=== PATIENT | female | born 1975 | race Caucasian/White ===

== ENCOUNTER 2025-09-07 15:04 | Observation (INO) | payer OTHER ==
--- NOTE | 2025-09-07 15:26 | ERPHSYRPT ---
- History of Present Illness Time Seen by Provider: 09/07/25 15:15 Source: patient Exam Limitations: no limitations Patient Subjective Stated Complaint: pt c/o of right medial thigh pain and thinks she has a blood clot Triage Nursing Assessment: Pt brought self to the ER, hypertensive, rates pain as 7/10, pulses normal, skin n/w/d, pain to the upper medial right thigh, hx of blood clots, has a filter in neck, denies chest pain, no difficulty breathing, doesn't appear to be in any distress Physician History: This is a morbidly obese 50-year-old white female patient who arrives via private vehicle and is a patient of Dr. Polk with the complaint of right upper medial thigh pain. The pain began 2 days ago. She is concerned about a recurrent DVT. Patient recently moved to this area from [place]. She was out of her Coumadin for approximately 1 month. Patient denies shortness of breath. Patient denies hemoptysis. Patient denies chest pain. Patient denies cough. Pain right lower extremity rated 7 out of 10. Occurred: days ago (2) Quality: aching Severity of Pain-Max: mild (To moderate) Severity of Pain-Current: mild (To moderate) Lower Extremities Pain: thigh: right (Medial aspect) Modifying Factors: Improves With: nothing Associated Symptoms: none Allergies/Adverse Reactions: Penicillins Allergy (Severe, Verified 09/07/25 15:19) Anaphylactic Reaction Sulfa (Sulfonamide Antibiotics) Allergy (Severe, Verified 09/07/25 15:19) Anaphylactic Reaction azithromycin Allergy (Verified 09/07/25 15:19) Hives cefaclor [From Ceclor] Allergy (Verified 09/07/25 15:19) Hives Home Medications: Duloxetine HCl 90 mg PO DAILY 09/07/25 [History] Esomeprazole Magnesium [Nexium] 40 mg PO DAILY 09/07/25 [History] Gabapentin [Neurontin ] 800 mg PO TID 09/07/25 [History] Oxycodone / APAP 10/325 mg [Oxycodone-Acetaminophen 10-325] 1 tab PO QID 09/07/25 [History] Oxyquinoline Sulfate [Hydroxyquinoline Sulfate] 1 gm MC DAILY 09/07/25 [History] Rosuvastatin Calcium 10 mg PO DAILY 09/07/25 [History] Trazodone HCl 150 mg PO HS 09/07/25 [History] Warfarin Sodium 5 mg [Coumadin] 7 mg PO DAILY 09/07/25 [History] Hx Influenza Vaccination/Date Given: Yes Hx Pneumococcal Vaccination/Date Given: Yes Travel Risk - International Travel Have you traveled outside of the country in past 3 weeks: No - Emerging Infectious Disease Are you exhibiting symptoms associated with any current EIDs: No - Review of Systems Constitutional: No Symptoms Eyes: No Symptoms Ears, Nose, & Throat: No Symptoms Respiratory: No Symptoms Cardiac: No Symptoms Abdominal/Gastrointestinal: No Symptoms Genitourinary Symptoms: No Symptoms Musculoskeletal: Other (Medial thigh pain on the right side) Skin: No Symptoms Neurological: No Symptoms Psychological: No Symptoms Endocrine: No Symptoms Hematologic/Lymphatic: No Symptoms Immunological/Allergic: No Symptoms All Other Systems: Reviewed and Negative - Past Medical History Pertinent Past Medical History: Yes Cardiac History: Deep Vein Thrombosis, High Cholesterol Musculoskeletal History: Arthritis, Fractures Psycho-Social History: Depression Other Medical History: back fractures and bulging discs - Past Surgical History Past Surgical History: Yes Musculoskeletal: Joint Replacement Female Surgical History: Hysterectomy, Section, Lumpectomy Other Surgical History: arina knee replacement, bones fused in left foot toes, arina releases in wrists, filter in neck for clots - Female History Hx Now: No (hysterectomy) - Social History Smoking Status: Current every day smoker Exposure to second hand smoke: Yes Drug Use: none - Social Determinants of Health Will the patient participate in the screening: Yes Do you worry about a steady place to live?: No Do you have any problems with any of the following?: No known problems In the past 12 months,have you had to go without utilities?: No Transportation Issues: No Has anyone in your support network made you feel unsafe?: No Have you or anyone in your house had to go w/o enough food: No - Nursing Vital Signs Nursing Vital Signs: Initial Vital Signs Temperature 97.4 F 09/07/25 15:08 Pulse Rate 64 09/07/25 15:08 Blood Pressure 144/81 09/07/25 15:08 O2 Sat by Pulse Oximetry 98 09/07/25 15:08 Pain Scale Pain Intensity 6 - Physical Exam General Appearance: no apparent distress, alert, anxiety, obese Eyes, Ears, Nose, Throat Exam: normal ENT inspection, moist mucous membranes Neck Exam: normal inspection, non-tender, supple, full range of motion Cardiovascular/Respiratory Exam: chest non-tender, normal breath sounds, regular rate/rhythm, heart sounds normal, no ecchymosis, no JVD, no M/R/G, no respiratory distress Gastrointestinal/Abdominal Exam: non-tender Back Exam: normal inspection, normal range of motion, vertebral tenderness, No CVA tenderness Hips Exam: bilateral: non-tender, normal inspection, normal range of motion, no evidence of injury Legs Exam: right leg: soft tissue tenderness (Medial aspect right thigh), left leg: non-tender, normal inspection, normal range of motion, bilateral leg: no evidence of injury Knees Exam: bilateral knee: non-tender, normal inspection, normal range of motion, no evidence of injury Ankle Exam: bilateral ankle: non-tender, normal inspection, normal range of motion, no evidence of injury Foot Exam: bilateral foot: non-tender, normal inspection, normal range of motion, no evidence of injury Neuro/Tendon Exam: normal sensation, normal motor functions, normal tendon functions, responds to pain, no evidence tendon injury Mental Status Exam: alert, oriented x 3, cooperative Skin Exam: normal color, warm, dry SpO2 Interpretation: normal SpO2: 98 O2 Delivery: Room Air - Course Nursing assessment & vital signs reviewed: Yes Ordered Tests: Active Orders 24 hr Category Date Time Status IV Insertion STAT Care 09/07/25 16:19 Active CHEST WITH CONTRAST [CT] Stat Exams 09/07/25 16:23 Taken VENOUS BILATERAL EXTREMITY [US] Stat Exams 09/07/25 15:26 Completed CBC W DIFF Stat Lab 09/07/25 15:50 Completed CMP Stat Lab 09/07/25 15:50 Completed PT INR [PROTIME WITH INR] Stat Lab 09/07/25 15:35 Completed Transfer Order Routine Transfer 09/07/25 Ordered Medication Summary Generic Name Dose Route Start Last Admin Trade Name Freq PRN Reason Stop Dose Admin Sodium Chloride 1,000 mls @ 100 mls/hr 09/07/25 16:30 09/07/25 16:33 Sodium Chloride 0.9% 1000 Ml IV 10/07/25 16:29 100 mls/hr .Q10H ANDERS Administration Discontinued Medications Generic Name Dose Route Start Last Admin Trade Name Freq PRN Reason Stop Dose Admin Enoxaparin Sodium 120 mg 09/07/25 16:13 09/07/25 16:21 Enoxaparin Sodium 120 Mg/0.8 Ml Syringe SQ 09/07/25 16:14 120 mg STAT STA Administration Enoxaparin Sodium Confirm 09/07/25 16:19 Enoxaparin Sodium 120 Mg/0.8 Ml Syringe Administered 09/07/25 16:20 Dose 120 mg SQ .STK-MED ONE Hydromorphone HCl 1 mg 09/07/25 16:19 09/07/25 16:34 Hydromorphone 1 Mg/1ml Inj IV 09/07/25 16:20 1 mg STAT ONE Administration Hydromorphone HCl Confirm 09/07/25 16:31 Hydromorphone 1 Mg/1ml Inj Administered 09/07/25 16:32 Dose 1 mg .ROUTE .STK-MED ONE Hydromorphone HCl 1 mg 09/07/25 18:49 Hydromorphone 1 Mg/1ml Inj IV 09/07/25 18:50 STAT ONE Ondansetron HCl 4 mg 09/07/25 16:19 09/07/25 16:34 Ondansetron Hcl 4 Mg/2 Ml Vial IV 09/07/25 16:20 4 mg STAT ONE Administration Ondansetron HCl Confirm 09/07/25 16:31 Ondansetron Hcl 4 Mg/2 Ml Vial Administered 09/07/25 16:32 Dose 4 mg .ROUTE .STK-MED ONE Lab/Rad Data: Laboratory Result Diagrams 09/07/25 15:50 09/07/25 15:50 Laboratory Results 09/07/25 09/07/25 09/07/25 Range/Units 15:50 15:50 15:35 WBC 9.3 (3.98-10.04) x10^3/uL RBC 4.22 (3.93-5.22) x10^6/uL Hgb 13.9 (11.2-15.7) g/dL Hct 43.3 (34.1-44.9) % MCV 102.6 H (79.4-94.8) fL MCH 32.9 H (25.6-32.2) pg MCHC 32.1 L (32.2-35.5) g/dL RDW 13.8 (11.7-14.4) % Plt Count 233 (182-369) x10^3/uL MPV 10.7 (9.4-12.3) fL Gran % 63.7 (34.0-71.1) % Immature Gran % (Auto) 0.3 (0.001-0.429) % Nucleat RBC Rel Count 0.0 (0.00-0.2) % Eos # (Auto) 0.24 (0.04-0.36) x10^3/uL Immature Gran # (Auto) 0.03 (0.001-0.031) x10^3u/L Absolute Lymphs (auto) 2.33 (1.18-3.74) x10^3/uL Absolute Monos (auto) 0.69 (0.24-0.86) x10^3/uL Absolute Nucleated RBC 0.00 (0.00-0.012) x10^3u/L Lymphocytes % 25.1 (19.3-51.7) % Monocytes % 7.4 (4.7-12.5) % Eosinophils % 2.6 (0.7-5.8) % Basophils % 0.9 (0.1-1.2) % Absolute Granulocytes 5.93 (1.56-6.13) x10^3/uL Basophils # 0.08 (0.01-0.08) x10^3/uL PT 11.4 (9.4-12.5) SECONDS INR 1.02 (0.8-3.0) Sodium 142 (135-145) mmol/L Potassium 3.6 (3.5-5.1) mmol/L Chloride 111 H (98-107) mmol/L Carbon Dioxide 22 (22-30) mmol/L Anion Gap 12.6 (5-15) MEQ/L BUN 11 (7-17) mg/dL Creatinine 0.97 (0.52-1.04) mg/dL Estimated GFR 70.8 ML/MIN Glucose 94 (74-106) mg/dL Calcium 9.0 (8.4-10.2) mg/dL Total Bilirubin 0.20 (0.2-1.3) mg/dL AST 17 (14-36) U/L ALT 11 (0-35) U/L Alkaline Phosphatase 65 (38-126) U/L Serum Total Protein 7.6 (6.3-8.2) g/dL Albumin 4.1 (3.5-5.0) g/dL - Progress Progress: improved, pain not gone completely, re-examined Progress Note: 09/07/25 16:25 My medical decision making and the assignment of high complexity of this patient's medical issue today is based on review of the patient's past medical history, reviewed patient's medication list, reviewed patient drug allergy list, history present illness and physical findings on examination. The workup in this patient initially called for PT/INR and bilateral lower extremity venous Doppler. However, additional workup is being performed based on positive, bilateral lower extremity nonocclusive DVTs. Differential diagnosis includes but is not limited to bilateral musculoskeletal or lower extremity pain, bilateral DVTs, pulmonary embolus, subtherapeutic PT/INR Initial, preliminary report provided to me by the cnc set up operator/technologist is bilateral lower extremity nonoccluding DVTs. I spoke with Dr. Bolton, the telehospitalist regarding placing this patient in observation. Together, we have decided that we were going to place an intravenous line, provide the patient with subcutaneous Lovenox, order CBC, CMP, provide the patient with low rate intravenous fluid in order a CT scan of the chest with contrast to evaluate for pulmonary embolus. I will call him back with the report of the CT scan of the chest with contrast. I anticipate this patient will be placed in observation. 09/07/25 18:46 I called the telehospitalist and updated him on the laboratory results and the results of the CT scan of the chest with contrast. This study was interpreted by the radiologist and the impression states no obvious pulmonary embolus. We will place this patient on MedSurg telemetry. We will provide the patient with Lovenox 120 mg subcutaneously every 12 hours Counseled pt/family regarding: lab results, diagnosis, rad results Medical Desision Making - Diagnostic Testing Diagnostic test were ordered, analyzed, and reviewed by me: Yes Radiological Interpretation: Reviewed by me, Teleradiologist Report - Risk of complications The pt has a high risk of morbidity or mortality based on: Decision regarding hospitilization or escalation of hosp level of care - Departure Departure Disposition: Observation Clinical Impression: DVT of lower extremity, bilateral, Subtherapeutic anticoagulation Condition: Stable Critical Care Time: Yes Critical Care Time(excluding separately billable procedures): Critical 30-74 mins (45) Referrals: DUNIA POLK [Primary Care Provider, [facility]] - Follow up/PCP as directed
[2025-09-07 15:55] LABS: INR 1.02 (0.8-3.0); PROTIME 11.4 SECONDS (9.4-12.5)
[2025-09-07] MEDS ORDERED: ENOXAPARIN SODIUM SQ ONE (16:19)
[2025-09-07] MEDS: ENOXAPARIN SODIUM SQ STA (16:21)
--- NOTE | 2025-09-07 16:27 | XRAY ---
Indication: Bilateral leg pain and swelling. Two-dimensional sonogram and color Doppler imaging major venous vessels left and right leg performed. Comparison: None Right leg demonstrates nonoccluding thrombi in common femoral , deep femoral, and femoral veins. Left leg also demonstrates nonoccluding thrombi in deep femoral vein. No other thrombus in remaining deep venous vessels left and right leg including greater saphenous vein. Patent veins demonstrate normal compressibility and normal venous waveforms. Impression: Nonoccluding DVTs left and right leg as detailed above.
[2025-09-07 16:30] LABS: BASOPHIL % 0.9 % (0.1-1.2); Basophil (Absolute #) 0.08 x10^3/uL (0.01-0.08); Eosinophil (Absolute #) 0.24 x10^3/uL (0.04-0.36); Hematocrit 43.3 % (34.1-44.9); Hemoglobin 13.9 g/dL (11.2-15.7); IMMATURE GRAN # 0.03 x10^3u/L (0.001-0.031); IMMATURE GRAN % 0.3 % (0.001-0.429); Lymphocyte (Absolute #) 2.33 x10^3/uL (1.18-3.74); Mean Corpuscular Hemoglobin 32.9 pg (25.6-32.2); Mean Corpuscular Hgb Concent. 32.1 g/dL (32.2-35.5); Monocyte (Absolute #) 0.69 x10^3/uL (0.24-0.86); NUCLEATED RBC # 0.00 x10^3u/L (0.00-0.012); NUCLEATED RBC % 0.0 % (0.00-0.2); Platelet Count 233 x10^3/uL (182-369); Red Blood Count 4.22 x10^6/uL (3.93-5.22); White Blood Count 9.3 x10^3/uL (3.98-10.04)
[2025-09-07] MEDS ORDERED: Zofran 4 MG/2 ML VIAL ONE (16:31)
[2025-09-07] MEDS ORDERED: Hydromorphone 1 mg/ml Injection ONE ×2 (16:31→18:54)
[2025-09-07] MEDS: Hydromorphone 1 mg/ml Injection IV ONE ×2 (16:34→18:55)
[2025-09-07] MEDS: Zofran 4 MG/2 ML VIAL IV ONE (16:34)
[2025-09-07 16:36] LABS: Calcium 9.0 mg/dL (8.4-10.2); Carbon Dioxide 22.0 mmol/L (22-30); Creatinine 1 0.97 mg/dL (0.52-1.04); EST GLOMERULAR FILTRATION RATE 70.8 ML/MIN; Glucose 94.0 mg/dL (74-106); Potassium 3.6 mmol/L (3.5-5.1); SGOT/AST 17.0 U/L (14-36); SGPT/ALT 11.0 U/L (0-35); Total Protein 7.6 g/dL (6.3-8.2)
[2025-09-07] MEDS ORDERED: Zofran 4 MG/2 ML VIAL IV PRN ×2 (19:08→19:46)
[2025-09-07] MEDS ORDERED: Hydromorphone 1 mg/ml Injection IV PRN (19:48)
--- NOTE | 2025-09-07 19:55 | PCM.HP ---
History of Present Illness - Chief Complaint Chief Complaint: Bilateral lower extremity DVT Date: 09/07/25 History of Present Illness: is a 50 year old female with a history of hypercoagulable state with positive anticardiolipin antibody and history of multiple DVT/PE (s/p IVC filter placement in 2002; has been on coumadin custodial and has had failure of therapy with breakthrough clots on Xarelto and Eliquis in the past) who presented to the ED with right upper medial thigh pain and worsening leg edema which began 2 days ago. The patient recently moved to this area from [place] and had difficulty establishing care locally, so there was an interruption in her coumadin therapy for a little over 3 weeks. She has subsequently established care with Dr. Rubalcava and resumed her Coumadin yesterday. She denied shortness of breath, hemoptysis, chest pain, and cough. Pain right lower extremity was rated 7 out of 10 in terms of intensity; she received Dilaudid in the ED. Workup demonstrated bilateral nonocclusive DVT but no PE. The patient received Lovenox in the ED. - Review of Systems Constitutional: No Symptoms Eyes: No Symptoms Ears, Nose, & Throat: No Symptoms Respiratory: No Symptoms Cardiac: Edema, No Chest Pain, No Palpitations, No Syncope, No Orthopnea, No PND Abdominal/Gastrointestinal: No Symptoms Genitourinary Symptoms: No Symptoms Musculoskeletal: Other (leg pain reported), No Arthralgias, No Back Pain, No Neck Pain, No Deformity, No Fall, No Injury, No Joint Redness, No Joint Pain, No Joint Swelling, No Myalgias Skin: No Symptoms Neurological: No Symptoms Psychological: No Symptoms Endocrine: No Symptoms Hematologic/Lymphatic: No Symptoms Immunological/Allergic: No Symptoms All Other Systems: Reviewed and Negative Medications & Allergies Home Medications: Home Medication List Duloxetine HCl 90 mg PO DAILY 09/07/25 [History Confirmed 09/07/25] Esomeprazole Magnesium [Nexium] 40 mg PO DAILY 09/07/25 [History Confirmed 09/07/25] Gabapentin [Neurontin ] 800 mg PO TID 09/07/25 [History Confirmed 09/07/25] Oxycodone / APAP 10/325 mg [Oxycodone-Acetaminophen 10-325] 1 tab PO QID 09/07/25 [History Confirmed 09/07/25] Oxyquinoline Sulfate [Hydroxyquinoline Sulfate] 1 gm MC DAILY 09/07/25 [History Confirmed 09/07/25] Rosuvastatin Calcium 10 mg PO DAILY 09/07/25 [History Confirmed 09/07/25] Trazodone HCl 150 mg PO HS 09/07/25 [History Confirmed 09/07/25] Warfarin Sodium 5 mg [Coumadin] 7 mg PO DAILY 09/07/25 [History Confirmed 09/07/25] Allergies/Adverse Reactions: Allergies Allergy/AdvReac Type Severity Reaction Status Date / Time Penicillins Allergy Severe Anaphylactic Verified 09/07/25 15:19 Reaction Sulfa (Sulfonamide Allergy Severe Anaphylactic Verified 09/07/25 15:19 Antibiotics) Reaction azithromycin Allergy Hives Verified 09/07/25 15:19 cefaclor [From Ceclor] Allergy Hives Verified 09/07/25 15:19 - Past Medical History Past Medical History: Yes Neurological History: Migraines ENT History: No Pertinent History Cardiac History: Deep Vein Thrombosis, High Cholesterol Respiratory History: COPD, Pulmonary Embolism Endocrine Medical History: No Pertinent History Musculoskelatal History: Arthritis, Degenerative Disk Disease, Fractures, Rheumatoid Arthritis GI Medical History: No Pertinent History History: No Pertinent History Pyscho-Social History: Depression Reproductive Disorders: No Pertinent History Comment: 4 back fractures and bulging discs - Female History Are you now?: No (hysterectomy) - Past Surgical History Past Surgical History: Yes Neuro Surgical History: No Pertinent History Cardiac History: No Pertinent History Respiratory Surgery: No Pertinent History GI Surgical History: No Pertinent History Genitourinary Surgical Hx: No Pertinent History Musculskeletal Surgical Hx: Joint Replacement Female Surgical History: Hysterectomy, Section, Lumpectomy Other Surgical History: arina knee replacement, bones fused in left foot toes, arina releases in wrists, filter in neck for clots Significant Family History: other (mother and 3 siblings had blood clots) - Social History Smoking Status: Current every day smoker Exposure to second hand smoke: Yes Alcohol: Rarely Drug Use: none - Social Determinants of Health Will the patient participate in the screening: Yes Do you worry about a steady place to live?: No Do you have any problems with any of the following?: No known problems In the past 12 months,have you had to go without utilities?: No Have you or anyone in your house had to go without enough: No Transportation Issues: No Has anyone in your support network made you feel unsafe?: No - Physical Exam Vital Signs: Vital Signs - 24 hr Temp Pulse BP BP Pulse Ox 09/07/25 18:53 98 09/07/25 18:31 128/64 94 L 09/07/25 18:00 161/95 95 09/07/25 17:31 140/74 09/07/25 17:15 129/70 97 09/07/25 16:30 153/108 98 09/07/25 16:00 135/89 95 09/07/25 15:31 125/75 95 09/07/25 15:16 144/81 95 09/07/25 15:08 97.4 F 64 144/81 98 General Appearance: no apparent distress, alert Neurologic Exam: alert, oriented x 3, cooperative, cigarette and filter chief inspector II-XII nml as tested, normal mood/affect, nml cerebellar function Eye Exam: PERRL/EOMI, eyes nml inspection, No scleral icterus, No pale conjunctivae, No photophobia Ears, Nose, Throat Exam: normal ENT inspection Neck Exam: normal inspection, non-tender, supple, full range of motion, No meningismus Respiratory Exam: normal breath sounds, lungs clear, airway intact, No chest tenderness, No respiratory distress, No accessory muscle use, No prolonged expirations, No crackles/rales, No rhonchi, No wheezing, No stridor, No pleural rub Cardiovascular Exam: regular rate/rhythm, normal heart sounds, normal peripheral pulses, edema, No murmur, No friction rub, No gallop Gastrointestinal/Abdomen Exam: soft, normal bowel sounds, No tenderness, No distention, No guarding Back Exam: normal range of motion Extremity Exam: normal inspection, normal range of motion, pedal edema, swelling Skin Exam: normal color, No dry, No rash, No petechiae, No jaundice, No abrasion, No cyanosis Results - Labs Lab/Micro Results: Lab Results-Last 24 Hours 09/07/25 09/07/25 09/07/25 Range/Units 15:35 15:50 15:50 WBC 9.3 (3.98-10.04) x10^3/uL RBC 4.22 (3.93-5.22) x10^6/uL Hgb 13.9 (11.2-15.7) g/dL Hct 43.3 (34.1-44.9) % MCV 102.6 H (79.4-94.8) fL MCH 32.9 H (25.6-32.2) pg MCHC 32.1 L (32.2-35.5) g/dL RDW 13.8 (11.7-14.4) % Plt Count 233 (182-369) x10^3/uL MPV 10.7 (9.4-12.3) fL Gran % 63.7 (34.0-71.1) % Immature Gran % (Auto) 0.3 (0.001-0.429) % Nucleat RBC Rel Count 0.0 (0.00-0.2) % Eos # (Auto) 0.24 (0.04-0.36) x10^3/uL Immature Gran # (Auto) 0.03 (0.001-0.031) x10^3u/L Absolute Lymphs (auto) 2.33 (1.18-3.74) x10^3/uL Absolute Monos (auto) 0.69 (0.24-0.86) x10^3/uL Absolute Nucleated RBC 0.00 (0.00-0.012) x10^3u/L Lymphocytes % 25.1 (19.3-51.7) % Monocytes % 7.4 (4.7-12.5) % Eosinophils % 2.6 (0.7-5.8) % Basophils % 0.9 (0.1-1.2) % Absolute Granulocytes 5.93 (1.56-6.13) x10^3/uL Basophils # 0.08 (0.01-0.08) x10^3/uL PT 11.4 (9.4-12.5) SECONDS INR 1.02 (0.8-3.0) Sodium 142 (135-145) mmol/L Potassium 3.6 (3.5-5.1) mmol/L Chloride 111 H (98-107) mmol/L Carbon Dioxide 22 (22-30) mmol/L Anion Gap 12.6 (5-15) MEQ/L BUN 11 (7-17) mg/dL Creatinine 0.97 (0.52-1.04) mg/dL Estimated GFR 70.8 ML/MIN Glucose 94 (74-106) mg/dL Calcium 9.0 (8.4-10.2) mg/dL Total Bilirubin 0.20 (0.2-1.3) mg/dL AST 17 (14-36) U/L ALT 11 (0-35) U/L Alkaline Phosphatase 65 (38-126) U/L Serum Total Protein 7.6 (6.3-8.2) g/dL Albumin 4.1 (3.5-5.0) g/dL - Radiology Impressions Radiology Exams & Impressions: Radiology Procedures Category Date Time Status CHEST WITH CONTRAST [CT] Stat Exams 09/07/25 16:23 Taken VENOUS BILATERAL EXTREMITY [US] Stat Exams 09/07/25 15:26 Completed Assessment/Plan (1) DVT of lower extremity, bilateral Current Visit: Yes Status: Acute Assessment & Plan: Lovenox, resume coumadin, check INR daily. Patient familiar with coumadin dietary restrictions. Will need close follow up with PCP for Lovenox bridging coordination when discharged. Code(s): I82.403 - ACUTE EMBOLISM AND THOMBOS UNSP DEEP VEINS OF LOW EXTRM, BI (2) Anticardiolipin antibody syndrome Current Visit: Yes Status: Acute Assessment & Plan: Lifelong anticoagulation with coumadin. Has IVC filter in place. Code(s): D68.61 - ANTIPHOSPHOLIPID SYNDROME (3) Leg pain Current Visit: Yes Status: Acute Assessment & Plan: analgesia prn. (4) Subtherapeutic anticoagulation Current Visit: Yes Status: Acute Assessment & Plan: Monitor INR daily Code(s): Z51.81 - ENCOUNTER FOR THERAPEUTIC DRUG LEVEL MONITORING; Z79.01 - ANIMAL RIDES MANAGER (CURRENT) USE OF ANTICOAGULANTS Telemedicine Encounter - Telemedicine Encounter Telemedicine Encounter: "The entirety of this encounter was performed via Telemedicine" This visit was performed using real-time audio and video connection between my location and thepatients locationwith the assistance of a surrogateat the patients location. Written or verbal consent was obtained from the patient/guardian to perform this visit [email or web address]. Any patient questions regarding the telemedicine interaction were answered. Please note that this admission required 48 minutes to complete.
[2025-09-07 20:57] LABS: INR 1.01 (0.8-3.0); PROTIME 11.3 SECONDS (9.4-12.5); PTT 30.9 SECONDS (25.1-36.5)
[2025-09-07] MEDS ORDERED: DESYREL 50 MG ONE (21:21)
[2025-09-07] MEDS: ENOXAPARIN SODIUM SQ SCH (21:24)
[2025-09-07] MEDS: TRAZODONE HCL 150 MG PO SCH (21:27)
[2025-09-07] MEDS: OXYCODONE-ACETAMINOPHEN 10-325 PO SCH (21:28)
--- NOTE | 2025-09-07 21:31 | XRAY ---
Indication: History DVT and pulmonary embolus. Multiple contiguous axial images obtained through the chest using 100 cc Isovue 370 contrast and PE protocol. Comparison: None Good opacification pulmonary arteries. Mild diffuse respiration artifact limits evaluation of the more distal lobar and segmental branches. No obvious pulmonary embolus. Heart not enlarged. Aorta is minimally arteriosclerotic without aneurysm/dissection. No pathologic mediastinal/hilar lymphadenopathy. Small hiatal hernia. Lungs hyperinflated with mild bilateral dependent atelectasis. No suspicious pulmonary mass/nodule, infiltrate, or effusion. Bony thorax intact with minimal/mild degenerative changes throughout the spine. Limited upper abdomen demonstrates fatty liver. Impression: 1. Pulmonary embolus evaluation limited by respiration artifact. No obvious pulmonary embolus. 2. Chronic findings including hiatal hernia, multilevel degenerative spondylosis, and fatty liver. 3. Remaining CT chest with contrast is negative.
[2025-09-08] MEDS: NORCO 5/325 MG PO PRN (04:20)
[2025-09-08 05:19] LABS: Hematocrit 39.5 % (34.1-44.9); Hemoglobin 12.6 g/dL (11.2-15.7); Mean Corpuscular Hemoglobin 33.1 pg (25.6-32.2); Mean Corpuscular Hgb Concent. 31.9 g/dL (32.2-35.5); Platelet Count 211 x10^3/uL (182-369); Red Blood Count 3.81 x10^6/uL (3.93-5.22); White Blood Count 8.4 x10^3/uL (3.98-10.04)
[2025-09-08 05:27] LABS: Calcium 8.9 mg/dL (8.4-10.2); Carbon Dioxide 21 mmol/L (22-30); Creatinine 1 0.92 mg/dL (0.52-1.04); EST GLOMERULAR FILTRATION RATE 75.4 ML/MIN; Glucose 93 mg/dL (74-106); Potassium 3.8 mmol/L (3.5-5.1); SGOT/AST 16 U/L (14-36); SGPT/ALT 10 U/L (0-35); Total Protein 6.7 g/dL (6.3-8.2)
[2025-09-08] MEDS ORDERED: Narcan 0.4 MG/ML IV PRN (07:28)
[2025-09-08] MEDS ORDERED: MEDICATION INTERVENTION MC SCH (07:30)
[2025-09-08 07:37] LABS: Total Cells Counted 100
[2025-09-08 07:49] LABS: INR 1.05 (0.8-3.0); PROTIME 11.7 SECONDS (9.4-12.5)
[2025-09-08] MEDS: TYLENOL 325 MG PO PRN (08:39)
[2025-09-08] MEDS: PHARMACY DOSING REQUEST MC ONE (08:43)
--- NOTE | 2025-09-08 08:55 | PCM.NOTE ---
Date and Time: 09/08/25 0846 Subjective Assessment: is a 50-year-old female with a significant past medical history that includes morbid obesity, chronic obstructive pulmonary disease, degenerative joint disease, rheumatoid arthritis, systemic lupus erythematosus, depression, hyperlipidemia, and a hypercoagulable state associated with positive an ticardiolipin antibodies. She has a history of multiple episodes of deep vein thrombosis (DVT) and pulmonary embolism (PE) and underwent placement of an inferior vena cava (IVC) filter in 2002. She has been on long-term warfarin therapy but has previously failed therapy with both Xarelto and Eliquis, experiencing breakthrough clots on each. The patient recently relocated from [place] and had difficulty establishing care locally, resulting in an interruption in her Coumadin therapy for a little over three weeks. She has since established care with Dr. Rubalcava and resumed Coumadin on September 07, 2025. She presented to the emergency department on September 07, 2025, with right upper medial thigh pain and worsening leg edema that began two days prior. She described the pain as 7 out of 10 in intensity. She denied shortness of breath, chest pain, cough, or hemoptysis. In the emergency department, she received Dilaudid for pain control. Diagnostic evaluation revealed bilateral nonocclusive DVTs but no evidence of pulmonary embolism. She was given a dose of Lovenox in the ED. On September 08, 2025, the patient reports continued pain in her right upper leg. She takes chronic Percocet 10 mg four times daily for pain related to degenerative joint disease and rheumatoid arthritis. Although warfarin and Lovenox were ordered yesterday, Coumadin therapy did not begin until today. She denies any new or worsening symptoms, including chest pain or shortness of breath. The current plan is to continue both Lovenox and warfarin until her INR is therapeutic, given her history of hypercoagulability and recurrent thrombosis. Case management will evaluate on Wednesday whether her insurance will cover outpatient Lovenox injections, as this will determine whether she can be discharged with both medications. Her INR will be monitored daily while inpatient. Pain will be managed with her chronic Percocet regimen, and Tylenol will be used as needed for breakthrough pain. She will be monitored for any signs or symptoms of pulmonary embolism and encouraged to elevate her legs and ambulate as tolerated. If insurance coverage for Lovenox is confirmed and she is clinically stable, the patient may be discharged home on warfarin with Lovenox bridging until her INR is therapeutic, with follow-up arranged through the outpatient anticoagulation clinic at [facility]. - Review of Systems Constitutional: No Fever, No Chills Eyes: No Symptoms Ears, Nose, & Throat: No Symptoms Respiratory: No Cough, No Short Of Breath Cardiac: No Chest Pain, No Edema, No Syncope Abdominal/Gastrointestinal: No Abdominal Pain, No Nausea, No Vomiting, No Diarrhea Genitourinary Symptoms: No Dysuria Musculoskeletal: Myalgias (right upper leg pain, edema), No Back Pain, No Neck Pain Skin: No Rash Neurological: No Dizziness, No Focal Weakness, No Sensory Changes Psychological: No Symptoms Endocrine: No Symptoms Hematologic/Lymphatic: No Symptoms Immunological/Allergic: No Symptoms Objective Exam General Appearance: no apparent distress, alert, obese Neurologic Exam: alert, oriented x 3, cooperative, normal mood/affect, nml cerebellar function, sensation nml, No motor deficits Skin Exam: normal color, warm, dry Eye Exam: PERRL, EOMI, eyes nml inspection Ears, Nose, Throat Exam: normal ENT inspection, pharynx normal, moist mucous membranes Neck Exam: normal inspection, non-tender, supple, full range of motion Respiratory Exam: normal breath sounds, lungs clear, No respiratory distress Cardiovascular Exam: regular rate/rhythm, normal heart sounds Gastrointestinal/Abdomen Exam: soft, No tenderness, No mass Extremity Exam: normal inspection, normal range of motion, tenderness (right thigh) Back Exam: normal inspection, normal range of motion, No CVA tenderness, No vertebral tenderness Pelvic Exam: deferred Rectal Exam: deferred Objective Data Vital Signs: Vital Signs - 24 hr Temp Pulse Resp BP BP Pulse Ox 09/08/25 08:00 97.8 F 62 16 92/50 95 09/08/25 04:00 97.5 F 71 17 94/52 95 09/08/25 00:00 17 09/07/25 23:54 97.3 F 60 17 97/54 95 09/07/25 19:24 97.1 F 68 132/64 96 09/07/25 18:53 98 09/07/25 18:31 128/64 94 L 09/07/25 18:00 161/95 95 09/07/25 17:31 140/74 09/07/25 17:15 129/70 97 09/07/25 16:30 153/108 98 09/07/25 16:00 135/89 95 09/07/25 15:31 125/75 95 09/07/25 15:16 144/81 95 09/07/25 15:08 97.4 F 64 144/81 98 Pain Assessment - Last Documented Pain Intensity 7 Pain Scale Used FLACC Intake and Output: Intake & Output 09/05/25 09/06/25 09/07/25 09/08/25 11:59 11:59 11:59 11:59 Weight 115.5 kg Lab Results: Lab Results-Last 24 Hours 09/07/25 09/07/25 09/07/25 Range/Units 15:35 15:50 15:50 WBC 9.3 (3.98-10.04) x10^3/uL RBC 4.22 (3.93-5.22) x10^6/uL Hgb 13.9 (11.2-15.7) g/dL Hct 43.3 (34.1-44.9) % MCV 102.6 H (79.4-94.8) fL MCH 32.9 H (25.6-32.2) pg MCHC 32.1 L (32.2-35.5) g/dL RDW 13.8 (11.7-14.4) % Plt Count 233 (182-369) x10^3/uL MPV 10.7 (9.4-12.3) fL Gran % 63.7 (34.0-71.1) % Immature Gran % (Auto) 0.3 (0.001-0.429) % Nucleat RBC Rel Count 0.0 (0.00-0.2) % Eos # (Auto) 0.24 (0.04-0.36) x10^3/uL Immature Gran # (Auto) 0.03 (0.001-0.031) x10^3u/L Absolute Lymphs (auto) 2.33 (1.18-3.74) x10^3/uL Absolute Monos (auto) 0.69 (0.24-0.86) x10^3/uL Absolute Nucleated RBC 0.00 (0.00-0.012) x10^3u/L Lymphocytes % 25.1 (19.3-51.7) % Monocytes % 7.4 (4.7-12.5) % Eosinophils % 2.6 (0.7-5.8) % Basophils % 0.9 (0.1-1.2) % Absolute Granulocytes 5.93 (1.56-6.13) x10^3/uL Segmented Neutrophils (34.0-71.1) % Lymphocytes (Manual) (19.3-51.7) % Monocytes (Manual) (4.7-12.5) % Eosinophils (Manual) (0.7-5.8) % Basophils (Manual) (0.1-1.2) % Basophils # 0.08 (0.01-0.08) x10^3/uL Atypical Lymphocytes % Platelet Estimate (NORMAL) RBC Morphology PT 11.4 (9.4-12.5) SECONDS INR 1.02 (0.8-3.0) APTT (25.1-36.5) SECONDS Sodium 142 (135-145) mmol/L Potassium 3.6 (3.5-5.1) mmol/L Chloride 111 H (98-107) mmol/L Carbon Dioxide 22 (22-30) mmol/L Anion Gap 12.6 (5-15) MEQ/L BUN 11 (7-17) mg/dL Creatinine 0.97 (0.52-1.04) mg/dL Estimated GFR 70.8 ML/MIN Glucose 94 (74-106) mg/dL Calcium 9.0 (8.4-10.2) mg/dL Total Bilirubin 0.20 (0.2-1.3) mg/dL AST 17 (14-36) U/L ALT 11 (0-35) U/L Alkaline Phosphatase 65 (38-126) U/L Serum Total Protein 7.6 (6.3-8.2) g/dL Albumin 4.1 (3.5-5.0) g/dL 09/07/25 09/08/25 09/08/25 Range/Units 20:30 05:06 05:06 WBC 8.4 (3.98-10.04) x10^3/uL RBC 3.81 L (3.93-5.22) x10^6/uL Hgb 12.6 (11.2-15.7) g/dL Hct 39.5 (34.1-44.9) % MCV 103.7 H (79.4-94.8) fL MCH 33.1 H (25.6-32.2) pg MCHC 31.9 L (32.2-35.5) g/dL RDW 14.0 (11.7-14.4) % Plt Count 211 (182-369) x10^3/uL MPV 10.2 (9.4-12.3) fL Gran % (34.0-71.1) % Immature Gran % (Auto) (0.001-0.429) % Nucleat RBC Rel Count (0.00-0.2) % Eos # (Auto) (0.04-0.36) x10^3/uL Immature Gran # (Auto) (0.001-0.031) x10^3u/L Absolute Lymphs (auto) (1.18-3.74) x10^3/uL Absolute Monos (auto) (0.24-0.86) x10^3/uL Absolute Nucleated RBC (0.00-0.012) x10^3u/L Lymphocytes % (19.3-51.7) % Monocytes % (4.7-12.5) % Eosinophils % (0.7-5.8) % Basophils % (0.1-1.2) % Absolute Granulocytes (1.56-6.13) x10^3/uL Segmented Neutrophils 42 (34.0-71.1) % Lymphocytes (Manual) 43 (19.3-51.7) % Monocytes (Manual) 6 (4.7-12.5) % Eosinophils (Manual) 4 (0.7-5.8) % Basophils (Manual) 2 H (0.1-1.2) % Basophils # (0.01-0.08) x10^3/uL Atypical Lymphocytes 3 % Platelet Estimate NORMAL (NORMAL) RBC Morphology NORMAL PT 11.3 (9.4-12.5) SECONDS INR 1.01 (0.8-3.0) APTT 30.9 (25.1-36.5) SECONDS Sodium 140 (135-145) mmol/L Potassium 3.8 (3.5-5.1) mmol/L Chloride 113 H (98-107) mmol/L Carbon Dioxide 21 L (22-30) mmol/L Anion Gap 10.2 (5-15) MEQ/L BUN 14 (7-17) mg/dL Creatinine 0.92 (0.52-1.04) mg/dL Estimated GFR 75.4 ML/MIN Glucose 93 (74-106) mg/dL Calcium 8.9 (8.4-10.2) mg/dL Total Bilirubin < 0.10 L (0.2-1.3) mg/dL AST 16 (14-36) U/L ALT 10 (0-35) U/L Alkaline Phosphatase 59 (38-126) U/L Serum Total Protein 6.7 (6.3-8.2) g/dL Albumin 3.5 (3.5-5.0) g/dL 09/08/25 Range/Units 05:06 WBC (3.98-10.04) x10^3/uL RBC (3.93-5.22) x10^6/uL Hgb (11.2-15.7) g/dL Hct (34.1-44.9) % MCV (79.4-94.8) fL MCH (25.6-32.2) pg MCHC (32.2-35.5) g/dL RDW (11.7-14.4) % Plt Count (182-369) x10^3/uL MPV (9.4-12.3) fL Gran % (34.0-71.1) % Immature Gran % (Auto) (0.001-0.429) % Nucleat RBC Rel Count (0.00-0.2) % Eos # (Auto) (0.04-0.36) x10^3/uL Immature Gran # (Auto) (0.001-0.031) x10^3u/L Absolute Lymphs (auto) (1.18-3.74) x10^3/uL Absolute Monos (auto) (0.24-0.86) x10^3/uL Absolute Nucleated RBC (0.00-0.012) x10^3u/L Lymphocytes % (19.3-51.7) % Monocytes % (4.7-12.5) % Eosinophils % (0.7-5.8) % Basophils % (0.1-1.2) % Absolute Granulocytes (1.56-6.13) x10^3/uL Segmented Neutrophils (34.0-71.1) % Lymphocytes (Manual) (19.3-51.7) % Monocytes (Manual) (4.7-12.5) % Eosinophils (Manual) (0.7-5.8) % Basophils (Manual) (0.1-1.2) % Basophils # (0.01-0.08) x10^3/uL Atypical Lymphocytes % Platelet Estimate (NORMAL) RBC Morphology PT 11.7 (9.4-12.5) SECONDS INR 1.05 (0.8-3.0) APTT (25.1-36.5) SECONDS Sodium (135-145) mmol/L Potassium (3.5-5.1) mmol/L Chloride (98-107) mmol/L Carbon Dioxide (22-30) mmol/L Anion Gap (5-15) MEQ/L BUN (7-17) mg/dL Creatinine (0.52-1.04) mg/dL Estimated GFR ML/MIN Glucose (74-106) mg/dL Calcium (8.4-10.2) mg/dL Total Bilirubin (0.2-1.3) mg/dL AST (14-36) U/L ALT (0-35) U/L Alkaline Phosphatase (38-126) U/L Serum Total Protein (6.3-8.2) g/dL Albumin (3.5-5.0) g/dL Radiology Exams: Radiology Procedures Category Date Time Status CHEST WITH CONTRAST [CT] Stat Exams 09/07/25 16:23 Completed VENOUS BILATERAL EXTREMITY [US] Stat Exams 09/07/25 15:26 Completed Medications: Medications Generic Name Dose Route Start Last Admin Trade Name Freq PRN Reason Stop Dose Admin Acetaminophen 650 mg 09/07/25 19:08 09/08/25 08:39 Acetaminophen 325 Mg Tablet PO 10/07/25 19:07 650 mg Q4H PRN PRN Administration PAIN, FEVER, HEADACHE Duloxetine HCl 90 mg 09/08/25 10:00 Duloxetine Hcl 30 Mg Cap PO 10/08/25 09:59 DAILY ANDERS Enoxaparin Sodium 120 mg 09/07/25 22:00 09/07/25 21:24 Enoxaparin Sodium 120 Mg/0.8 Ml Syringe SQ 10/07/25 21:59 120 mg Q12HT ANDERS Administration Gabapentin 800 mg 09/07/25 22:00 09/07/25 21:29 Gabapentin 400 Mg Capsule PO 10/07/25 21:59 800 mg TID ANDERS Administration Miscellaneous Information 1 each 09/08/25 07:30 Medication Intervention 1 Each Each 10/08/25 07:29 .RN TO CHECK ANDERS Naloxone HCl 0.4 mg 09/08/25 07:28 Naloxone Hcl 0.4 Mg/Ml Ml IV 10/08/25 07:27 PRN PRN RESPIRATORY DEPRESSION Ondansetron HCl 4 mg 09/07/25 19:46 Ondansetron Hcl 4 Mg/2 Ml Vial IV 10/07/25 19:45 Q6H PRN PRN NAUSEA/VOMITING Oxycodone/Acetaminophen 1 tab 09/07/25 22:00 09/07/25 21:28 Oxycodone / Apap 10/325 Mg 1 Tablet PO 09/12/25 21:59 1 tab QID ANDERS Administration Pantoprazole Sodium 40 mg 09/08/25 10:00 Protonix (Pantoprazole) 40 Mg Tablet PO 10/08/25 09:59 DAILY ANDERS Ropinirole HCl 1 mg 09/08/25 22:00 Ropinirole Hcl 0.5 Mg Tablet PO 10/08/25 21:59 HS [facility]1983 Simvastatin 20 mg 09/08/25 10:00 Simvastatin 20 Mg Tablet PO 10/08/25 09:59 DAILY ANDERS Trazodone HCl 150 mg 09/08/25 22:00 Trazodone Hcl 50 Mg Tablet PO 10/08/25 21:59 HS [facility], [facility]1983 Warfarin Sodium 5 mg 09/08/25 18:00 Warfarin Sodium 5 Mg Tablet PO 10/08/25 17:59 COU [facility], [facility]1983 Warfarin Sodium 2 mg 09/08/25 18:00 Warfarin Sodium 2 Mg Tablet PO 10/08/25 17:59 COU [facility] Discontinued Medications Generic Name Dose Route Start Last Admin Trade Name Freq PRN Reason Stop Dose Admin Hydrocodone Bitart/Acetaminophen 1 tab 09/07/25 19:48 09/08/25 04:20 Hydrocodone/Apap 5/325 1 Tab Tablet PO 09/12/25 19:47 1 tab Q4H PRN PRN Administration PAIN Enoxaparin Sodium 120 mg 09/07/25 16:13 09/07/25 16:21 Enoxaparin Sodium 120 Mg/0.8 Ml Syringe SQ 09/07/25 16:14 120 mg STAT STA Administration Enoxaparin Sodium Confirm 09/07/25 16:19 Enoxaparin Sodium 120 Mg/0.8 Ml Syringe Administered 09/07/25 16:20 Dose 120 mg SQ .STK-MED ONE Hydromorphone HCl 1 mg 09/07/25 16:19 09/07/25 16:34 Hydromorphone 1 Mg/1ml Inj IV 09/07/25 16:20 1 mg STAT ONE Administration Hydromorphone HCl Confirm 09/07/25 16:31 Hydromorphone 1 Mg/1ml Inj Administered 09/07/25 16:32 Dose 1 mg .ROUTE .STK-MED ONE Hydromorphone HCl 1 mg 09/07/25 18:49 09/07/25 18:55 Hydromorphone 1 Mg/1ml Inj IV 09/07/25 18:50 1 mg STAT ONE Administration Hydromorphone HCl Confirm 09/07/25 18:54 Hydromorphone 1 Mg/1ml Inj Administered 09/07/25 18:55 Dose 1 mg .ROUTE .STK-MED ONE Hydromorphone HCl 1 mg 09/07/25 19:48 Hydromorphone 1 Mg/1ml Inj IV 09/12/25 19:47 Q4H PRN PRN PAIN Sodium Chloride 1,000 mls @ 100 mls/hr 09/07/25 16:30 09/07/25 16:33 Sodium Chloride 0.9% 1000 Ml IV 10/07/25 16:29 100 mls/hr .Q10H ANDERS Administration Sodium Chloride Confirm 09/07/25 16:32 Sodium Chloride 0.9% 1000 Ml Administered 09/07/25 16:33 Dose 1,000 mls @ ud .ROUTE .STK-MED ONE Non-Formulary Medication 150 mg 09/07/25 22:00 09/07/25 21:27 Trazodone Hcl [Trazodone Hcl] PO 10/07/25 21:59 150 mg HS ANDERS Administration Non-Formulary Medication 1 each 09/08/25 07:27 Pharmacy Dosing Request [facility] 09/08/25 07:28 STAT ONE Ondansetron HCl 4 mg 09/07/25 16:19 09/07/25 16:34 Ondansetron Hcl 4 Mg/2 Ml Vial IV 09/07/25 16:20 4 mg STAT ONE Administration Ondansetron HCl Confirm 09/07/25 16:31 Ondansetron Hcl 4 Mg/2 Ml Vial Administered 09/07/25 16:32 Dose 4 mg .ROUTE .STK-MED ONE Trazodone HCl Confirm 09/07/25 21:21 Trazodone Hcl 50 Mg Tablet Administered 09/07/25 21:22 Dose 150 mg .ROUTE .STK-MED ONE Assessment/Plan (1) DVT of lower extremity, bilateral Current Visit: Yes Status: Acute Code(s): I82.403 - ACUTE EMBOLISM AND THOMBOS UNSP DEEP VEINS OF LOW EXTRM, BI (2) Anticardiolipin antibody syndrome Current Visit: Yes Status: Acute Code(s): D68.61 - ANTIPHOSPHOLIPID SYNDROME (3) Leg pain Current Visit: Yes Status: Acute (4) Subtherapeutic anticoagulation Current Visit: Yes Status: Acute Assessment & Plan: (1) DVT of lower extremity, bilateral Current Visit: Yes Status: Acute Assessment & Plan: - Lovenox BID, resume coumadin, check INR daily. - Pharmacy to dose Coumadin - Patient familiar with Coumadin dietary restrictions. - Will need close follow up with PCP for Lovenox bridging coordination when discharged. - CM to assist when back Wednesday with cost of meds - Advised smoking cessation- nicotine patch - She will need to f/u OP with the [facility]madin Clinic [facility] at D/C Code(s): I82.403 - ACUTE EMBOLISM AND THOMBOS UNSP DEEP VEINS OF LOW EXTRM, BI (2) Anticardiolipin antibody syndrome Current Visit: Yes Status: Acute Assessment & Plan: - Lifelong anticoagulation with coumadin. - Has IVC filter in place. Code(s): D68.61 - ANTIPHOSPHOLIPID SYNDROME (3) Leg pain Current Visit: Yes Status: Acute Assessment & Plan: - Analgesia prn (4) Subtherapeutic anticoagulation Current Visit: Yes Status: Acute Assessment & Plan: - Monitor INR daily Code(s): Z51.81 - ENCOUNTER FOR THERAPEUTIC DRUG LEVEL MONITORING; Z79.01 - [facility] (CURRENT) USE OF ANTICOAGULANTS Code(s): Z51.81 - ENCOUNTER FOR THERAPEUTIC DRUG LEVEL MONITORING; Z79.01 - [facility] (CURRENT) USE OF ANTICOAGULANTS (5) Rheumatoid arthritis Current Visit: Yes Status: Chronic Assessment & Plan: - Continue home meds Code(s): M06.9 - RHEUMATOID ARTHRITIS, UNSPECIFIED (6) Chronic back pain Current Visit: Yes Status: Chronic Assessment & Plan: - Referred to [facility] mgnt [facility] by PCP - Takes Percocet 10mg QID- this is over the recommended guidelines - Narcan nasal spray will need prescribed at d/c - Continue gabapentin - Narcan IV PRN resp depression IP - Continue cymbalta Code(s): M54.9 - DORSALGIA, UNSPECIFIED; G89.29 - OTHER CHRONIC PAIN (7) Lupus Current Visit: Yes Status: Chronic Assessment & Plan: - Continue home meds Code(s): [id number] - (8) Hyperlipidemia Current Visit: Yes Status: Chronic Assessment & Plan: - Continue statin Code(s): E78.5 - HYPERLIPIDEMIA, UNSPECIFIED (9) Depression Current Visit: Yes Status: Chronic Assessment & Plan: - Continue home meds Code(s): F32.A - DEPRESSION, UNSPECIFIED (10) Smoker Current Visit: Yes Status: Chronic Assessment & Plan: - Advised cessation, especially with her clotting disorder - 1800 quit-now information provided - Nicotine patch VTE: Coumadin, Lovenox PPI: Protonix Next of Kin: Spouse, Devon Abrams, D/C plan: When INR therapeutic or Wednesday if she can afford Lovenox injections Code status: Full Plan of care time > 40 minutes Code(s): F17.200 - NICOTINE DEPENDENCE, UNSPECIFIED, UNCOMPLICATED
[2025-09-08] MEDS ORDERED: [UNRECOGNIZED DRUG - OTHER] MC SCH (10:00)
[2025-09-08] MEDS: Nicoderm CQ 21 MG TOP SCH (10:18)
[2025-09-08] MEDS: Cymbalta 30 MG Capsule PO SCH (10:18)
[2025-09-08] MEDS: COUMADIN PO SCH (10:19)
[2025-09-08] MEDS: ZOCOR 20MG PO SCH (10:19)
[2025-09-08] MEDS: Protonix 40MG Tablet PO SCH (10:19)
[2025-09-08] MEDS: Coumadin 2 MG PO SCH (10:20)
[2025-09-08] MEDS: Imitrex 6 MG/0.5 ML SQ STA (19:42)
[2025-09-08] MEDS: Requip 0.5 MG PO SCH (21:33)
[2025-09-08] MEDS: DESYREL 50 MG PO SCH (21:33)
[2025-09-09 05:56] LABS: Hematocrit 38.5 % (34.1-44.9); Hemoglobin 12.3 g/dL (11.2-15.7); Mean Corpuscular Hemoglobin 32.9 pg (25.6-32.2); Mean Corpuscular Hgb Concent. 31.9 g/dL (32.2-35.5); Platelet Count 229 x10^3/uL (182-369); Red Blood Count 3.74 x10^6/uL (3.93-5.22); White Blood Count 7.6 x10^3/uL (3.98-10.04)
[2025-09-09 06:18] LABS: Calcium 8.8 mg/dL (8.4-10.2); Carbon Dioxide 23 mmol/L (22-30); Creatinine 1 0.97 mg/dL (0.52-1.04); EST GLOMERULAR FILTRATION RATE 70.8 ML/MIN; Glucose 91 mg/dL (74-106); INR 0.97 (0.8-3.0); PROTIME 10.9 SECONDS (9.4-12.5); Potassium 4.0 mmol/L (3.5-5.1); SGOT/AST 15 U/L (14-36); SGPT/ALT 10 U/L (0-35); Total Protein 6.6 g/dL (6.3-8.2)
--- NOTE | 2025-09-09 08:53 | PCM.NOTE ---
Date and Time: 09/09/25 0847 Subjective Assessment: 09/07/25 is a 50-year-old female with a significant past medical history that includes morbid obesity, chronic obstructive pulmonary disease, degenerative joint disease, rheumatoid arthritis, systemic lupus erythematosus, depression, hyperlipidemia, and a hypercoagulable state associated with positive anticardiolipin antibodies. She has a history of multiple episodes of deep vein thrombosis (DVT) and pulmonary embolism (PE) and underwent placement of an inferior vena cava (IVC) filter in 2002. She has been on long-term warfarin therapy but has previously failed therapy with both Xarelto and Eliquis, experiencing breakthrough clots on each. The patient recently relocated from [place] and had difficulty establishing care locally, resulting in an interruption in her Coumadin therapy for a little over three weeks. She has since established care with Dr. Rubalcava and resumed Coumadin on September 07, 2025. She presented to the emergency department on September 07, 2025, with right upper medial thigh pain and worsening leg edema that began two days prior. She described the pain as 7 out of 10 in intensity. She denied shortness of breath, chest pain, cough, or hemoptysis. In the emergency department, she received Dilaudid for pain control. Diagnostic evaluation revealed bilateral nonocclusive DVTs but no evidence of pulmonary embolism. She was given a dose of Lovenox in the ED. On September 08, 2025, the patient reports continued pain in her right upper leg. She takes chronic Percocet 10 mg four times daily for pain related to degenerative joint disease and rheumatoid arthritis. Although warfarin and Lovenox were ordered yesterday, Coumadin therapy did not begin until today. She denies any new or worsening symptoms, including chest pain or shortness of breath. The current plan is to continue both Lovenox and warfarin until her INR is therapeutic, given her history of hypercoagulability and recurrent thrombosis. Case management will evaluate on Wednesday whether her insurance will cover outpatient Lovenox injections, as this will determine whether she can be discharged with both medications. Her INR will be monitored daily while inpatient. Pain will be managed with her chronic Percocet regimen, and Tylenol will be used as needed for breakthrough pain. She will be monitored for any signs or symptoms of pulmonary embolism and encouraged to elevate her legs and ambulate as tolerated. If insurance coverage for Lovenox is confirmed and she is clinically stable, the patient may be discharged home on warfarin with Lovenox bridging until her INR is therapeutic, with follow-up arranged through the outpatient anticoagulation clinic at [facility]. 09/09/25 The patient is resting in bed and continues to experience pain in the right upper thigh. She reported some anxiety last night, and a lavender scent patch was placed on her chest to help calm her nerves. Her INR remains subtherapeutic, so Lovenox and Coumadin will both be continued at this time. Case management will follow up tomorrow to assist with arranging outpatient medications and to determine if Lovenox is cost-effective for the patient. She denies any new complaints or additional concerns at this time. - Review of Systems Constitutional: No Fever, No Chills Eyes: No Symptoms Ears, Nose, & Throat: No Symptoms Respiratory: No Cough, No Short Of Breath Cardiac: No Chest Pain, No Edema, No Syncope Abdominal/Gastrointestinal: No Abdominal Pain, No Nausea, No Vomiting, No Diarrhea Genitourinary Symptoms: No Dysuria Musculoskeletal: Myalgias (right thigh pain), No Back Pain, No Neck Pain Skin: No Rash Neurological: No Dizziness, No Focal Weakness, No Sensory Changes Psychological: No Symptoms Endocrine: No Symptoms Hematologic/Lymphatic: No Symptoms Immunological/Allergic: No Symptoms Objective Exam General Appearance: no apparent distress, alert, obese Neurologic Exam: alert, oriented x 3, cooperative, normal mood/affect, nml cerebellar function, sensation nml, No motor deficits Skin Exam: normal color, warm, dry Eye Exam: PERRL, EOMI, eyes nml inspection Ears, Nose, Throat Exam: normal ENT inspection, pharynx normal, moist mucous membranes Neck Exam: normal inspection, non-tender, supple, full range of motion Respiratory Exam: normal breath sounds, lungs clear, No respiratory distress Cardiovascular Exam: regular rate/rhythm, normal heart sounds Gastrointestinal/Abdomen Exam: soft, No tenderness, No mass Extremity Exam: normal inspection, normal range of motion, tenderness (right thigh) Back Exam: normal inspection, normal range of motion, No CVA tenderness, No vertebral tenderness Pelvic Exam: deferred Rectal Exam: deferred Objective Data Vital Signs: Vital Signs - 24 hr Temp Pulse Resp BP Pulse Ox 09/09/25 08:20 14 09/09/25 07:20 96 09/09/25 07:00 98.0 F 55 L 14 125/56 96 09/09/25 04:00 19 09/09/25 03:00 97.9 F 63 19 104/55 93 L 09/09/25 00:00 16 09/08/25 23:00 97.4 F 59 L 16 102/55 95 09/08/25 20:00 25 H 09/08/25 19:57 99/56 09/08/25 19:52 98.0 F 59 L 25 H 94/52 99 09/08/25 18:05 64 120/58 09/08/25 16:20 14 09/08/25 16:00 97.7 F 64 14 90/53 92 L 09/08/25 15:53 96 09/08/25 12:00 16 09/08/25 11:41 68 16 99/53 94 L Pain Assessment - Last Documented Pain Intensity 5 Pain Scale Used 0-10 Pain Scale Intake and Output: Intake & Output 09/06/25 09/07/25 09/08/25 09/09/25 11:59 11:59 11:59 11:59 Intake Total 680 1700 Balance 680 1700 Weight 115.5 kg Lab Results: Lab Results-Last 24 Hours 09/09/25 09/09/25 09/09/25 Range/Units 05:19 05:19 05:19 WBC 7.6 (3.98-10.04) x10^3/uL RBC 3.74 L (3.93-5.22) x10^6/uL Hgb 12.3 (11.2-15.7) g/dL Hct 38.5 (34.1-44.9) % MCV 102.9 H (79.4-94.8) fL MCH 32.9 H (25.6-32.2) pg MCHC 31.9 L (32.2-35.5) g/dL RDW 13.9 (11.7-14.4) % Plt Count 229 (182-369) x10^3/uL MPV 10.4 (9.4-12.3) fL PT 10.9 (9.4-12.5) SECONDS INR 0.97 (0.8-3.0) Sodium 140 (135-145) mmol/L Potassium 4.0 (3.5-5.1) mmol/L Chloride 112 H (98-107) mmol/L Carbon Dioxide 23 (22-30) mmol/L Anion Gap 9.0 (5-15) MEQ/L BUN 16 (7-17) mg/dL Creatinine 0.97 (0.52-1.04) mg/dL Estimated GFR 70.8 ML/MIN Glucose 91 (74-106) mg/dL Calcium 8.8 (8.4-10.2) mg/dL Total Bilirubin < 0.10 L (0.2-1.3) mg/dL AST 15 (14-36) U/L ALT 10 (0-35) U/L Alkaline Phosphatase 59 (38-126) U/L Serum Total Protein 6.6 (6.3-8.2) g/dL Albumin 3.5 (3.5-5.0) g/dL Radiology Exams: Radiology Procedures Category Date Time Status CHEST WITH CONTRAST [CT] Stat Exams 09/07/25 16:23 Completed VENOUS BILATERAL EXTREMITY [US] Stat Exams 09/07/25 15:26 Completed Medications: Medications Generic Name Dose Route Start Last Admin Trade Name Freq PRN Reason Stop Dose Admin Acetaminophen 650 mg 09/07/25 19:08 09/09/25 03:35 Acetaminophen 325 Mg Tablet PO 10/07/25 19:07 650 mg Q4H PRN PRN Administration PAIN, FEVER, HEADACHE Duloxetine HCl 90 mg 09/08/25 10:00 09/08/25 10:18 Duloxetine Hcl 30 Mg Cap PO 10/08/25 09:59 90 mg DAILY ANDERS Administration Enoxaparin Sodium 120 mg 09/07/25 22:00 09/08/25 21:34 Enoxaparin Sodium 120 Mg/0.8 Ml Syringe SQ 10/07/25 21:59 120 mg Q12HT ANDERS Administration Gabapentin 800 mg 09/07/25 22:00 09/08/25 21:33 Gabapentin 400 Mg Capsule PO 10/07/25 21:59 800 mg TID ANDERS Administration Miscellaneous Information 1 each 09/08/25 07:30 Medication Intervention 1 Each Each 10/08/25 07:29 .RN TO CHECK ANDERS Naloxone HCl 0.4 mg 09/08/25 07:28 Naloxone Hcl 0.4 Mg/Ml Ml IV 10/08/25 07:27 PRN PRN RESPIRATORY DEPRESSION Nicotine 21 mg 09/08/25 10:00 09/08/25 10:18 Nicotine 21 Mg/Patch Patch TOP 10/08/25 09:59 21 mg Q24H10 ANDERS Administration Ondansetron HCl 4 mg 09/07/25 19:46 Ondansetron Hcl 4 Mg/2 Ml Vial IV 10/07/25 19:45 Q6H PRN PRN NAUSEA/VOMITING Oxycodone/Acetaminophen 1 tab 09/07/25 22:00 09/09/25 08:23 Oxycodone / Apap 10/325 Mg 1 Tablet PO 09/12/25 21:59 1 tab QID ANDERS Administration Pantoprazole Sodium 40 mg 09/08/25 10:00 09/08/25 10:19 Protonix (Pantoprazole) 40 Mg Tablet PO 10/08/25 09:59 40 mg DAILY ANDERS Administration Ropinirole HCl 1 mg 09/08/25 22:00 09/08/25 21:33 Ropinirole Hcl 0.5 Mg Tablet PO 10/08/25 21:59 1 mg HS ANDERS Administration Simvastatin 20 mg 09/08/25 10:00 09/08/25 10:19 Simvastatin 20 Mg Tablet PO 10/08/25 09:59 20 mg DAILY ANDERS Administration Trazodone HCl 150 mg 09/08/25 22:00 09/08/25 21:33 Trazodone Hcl 50 Mg Tablet PO 10/08/25 21:59 150 mg HS ANDERS Administration Warfarin Sodium 10 mg 09/09/25 10:00 Warfarin Sodium 5 Mg Tablet PO 10/09/25 09:59 DAILY ANDERS Discontinued Medications Generic Name Dose Route Start Last Admin Trade Name Freq PRN Reason Stop Dose Admin Hydrocodone Bitart/Acetaminophen 1 tab 09/07/25 19:48 09/08/25 04:20 Hydrocodone/Apap 5/325 1 Tab Tablet PO 09/12/25 19:47 1 tab Q4H PRN PRN Administration PAIN Enoxaparin Sodium 120 mg 09/07/25 16:13 09/07/25 16:21 Enoxaparin Sodium 120 Mg/0.8 Ml Syringe SQ 09/07/25 16:14 120 mg STAT STA Administration Enoxaparin Sodium Confirm 09/07/25 16:19 Enoxaparin Sodium 120 Mg/0.8 Ml Syringe Administered 09/07/25 16:20 Dose 120 mg SQ .STK-MED ONE Hydromorphone HCl 1 mg 09/07/25 16:19 09/07/25 16:34 Hydromorphone 1 Mg/1ml Inj IV 09/07/25 16:20 1 mg STAT ONE Administration Hydromorphone HCl Confirm 09/07/25 16:31 Hydromorphone 1 Mg/1ml Inj Administered 09/07/25 16:32 Dose 1 mg .ROUTE .STK-MED ONE Hydromorphone HCl 1 mg 09/07/25 18:49 09/07/25 18:55 Hydromorphone 1 Mg/1ml Inj IV 09/07/25 18:50 1 mg STAT ONE Administration Hydromorphone HCl Confirm 09/07/25 18:54 Hydromorphone 1 Mg/1ml Inj Administered 09/07/25 18:55 Dose 1 mg .ROUTE .STK-MED ONE Hydromorphone HCl 1 mg 09/07/25 19:48 Hydromorphone 1 Mg/1ml Inj IV 09/12/25 19:47 Q4H PRN PRN PAIN Sodium Chloride 1,000 mls @ 100 mls/hr 09/07/25 16:30 09/07/25 16:33 Sodium Chloride 0.9% 1000 Ml IV 10/07/25 16:29 100 mls/hr .Q10H ANDERS Administration Sodium Chloride Confirm 09/07/25 16:32 Sodium Chloride 0.9% 1000 Ml Administered 09/07/25 16:33 Dose 1,000 mls @ ud .ROUTE .STK-MED ONE Non-Formulary Medication 150 mg 09/07/25 22:00 09/07/25 21:27 Trazodone Hcl [Trazodone Hcl] PO 10/07/25 21:59 150 mg HS ANDERS Administration Non-Formulary Medication 1 each 09/08/25 07:27 09/08/25 08:43 Pharmacy Dosing Request [facility] 09/08/25 07:28 1 each STAT ONE Administration Ondansetron HCl 4 mg 09/07/25 16:19 09/07/25 16:34 Ondansetron Hcl 4 Mg/2 Ml Vial IV 09/07/25 16:20 4 mg STAT ONE Administration Ondansetron HCl Confirm 09/07/25 16:31 Ondansetron Hcl 4 Mg/2 Ml Vial Administered 09/07/25 16:32 Dose 4 mg .ROUTE .STK-MED ONE Sumatriptan Succinate 6 mg 09/08/25 18:54 09/08/25 19:42 Sumatriptan Succinate 6 Mg/0.5 Ml Vial SQ 09/08/25 18:55 6 mg STAT STA Administration Trazodone HCl Confirm 09/07/25 21:21 Trazodone Hcl 50 Mg Tablet Administered 09/07/25 21:22 Dose 150 mg .ROUTE .STK-MED ONE Warfarin Sodium 5 mg 09/08/25 10:00 09/08/25 10:19 Warfarin Sodium 5 Mg Tablet PO 10/08/25 09:59 5 mg DAILY ANDERS Administration Warfarin Sodium 2 mg 09/08/25 10:00 09/08/25 10:20 Warfarin Sodium 2 Mg Tablet PO 10/08/25 09:59 2 mg DAILY ANDERS Administration Multi-Disciplinary Progress Notes: Multi-Disciplinary Progress Notes 09/09/25 08:45 Pharmacy Note by Christian Connor INR 0.97, Coumadin increased to 10mg daily. Initialized on 09/09/25 08:45 - END OF NOTE 09/08/25 08:52 Pharmacy Note by Christian Connor Continue current dose of Lovenox 120mg q12h and Coumadin 7mg daily. Will re- time Coumadin for daily at 10am. Initialized on 09/08/25 08:52 - END OF NOTE Assessment/Plan (1) DVT of lower extremity, bilateral Current Visit: Yes Status: Acute Code(s): I82.403 - ACUTE EMBOLISM AND THOMBOS UNSP DEEP VEINS OF LOW EXTRM, BI (2) Anticardiolipin antibody syndrome Current Visit: Yes Status: Acute Code(s): D68.61 - ANTIPHOSPHOLIPID SYNDROME (3) Leg pain Current Visit: Yes Status: Acute (4) Subtherapeutic anticoagulation Current Visit: Yes Status: Acute Code(s): Z51.81 - ENCOUNTER FOR THERAPEUTIC DRUG LEVEL MONITORING; Z79.01 - SENIOR LIVING (CURRENT) USE OF ANTICOAGULANTS (5) Rheumatoid arthritis Current Visit: Yes Status: Chronic Code(s): M06.9 - RHEUMATOID ARTHRITIS, UNSPECIFIED (6) Chronic back pain Current Visit: Yes Status: Chronic Code(s): M54.9 - DORSALGIA, UNSPECIFIED; G89.29 - OTHER CHRONIC PAIN (7) Lupus Current Visit: Yes Status: Chronic Code(s): [id number] - (8) Hyperlipidemia Current Visit: Yes Status: Chronic Code(s): E78.5 - HYPERLIPIDEMIA, UNSPECIFIED (9) Depression Current Visit: Yes Status: Chronic Code(s): F32.A - DEPRESSION, UNSPECIFIED (10) Smoker Current Visit: Yes Status: Chronic Assessment & Plan: (1) DVT of lower extremity, bilateral Current Visit: Yes Status: Acute Assessment & Plan: - Lovenox BID, resume coumadin, check INR daily. - Pharmacy to dose Coumadin - Patient familiar with Coumadin dietary restrictions. - Will need close follow up with PCP for Lovenox bridging coordination when discharged. - CM to assist when back Wednesday with cost of meds - Advised smoking cessation- nicotine patch - She will need to f/u OP with the coumadin Clinic at [facility] at D/C 09/09 - CBC, CMP reviewed - INR 0.97 Code(s): I82.403 - ACUTE EMBOLISM AND THOMBOS UNSP DEEP VEINS OF LOW EXTRM, BI (2) Anticardiolipin antibody syndrome Current Visit: Yes Status: Acute Assessment & Plan: - Lifelong anticoagulation with coumadin. - Has IVC filter in place. Code(s): D68.61 - ANTIPHOSPHOLIPID SYNDROME (3) Leg pain Current Visit: Yes Status: Acute Assessment & Plan: - Analgesia prn (4) Subtherapeutic anticoagulation Current Visit: Yes Status: Acute Assessment & Plan: - Monitor INR daily Code(s): Z51.81 - ENCOUNTER FOR THERAPEUTIC DRUG LEVEL MONITORING; Z79.01 - SEN[facility] LIVING (CURRENT) USE OF ANTICOAGULANTS (5) Rheumatoid arthritis Current Visit: Yes Status: Chronic Assessment & Plan: - Continue home meds Code(s): M06.9 - RHEUMATOID ARTHRITIS, UNSPECIFIED (6) Chronic back pain Current Visit: Yes Status: Chronic Assessment & Plan: - Referred to Pain mgnt at [facility] by PCP - Takes Percocet 10mg QID- this is over the recommended guidelines - Narcan nasal spray will need prescribed at d/c - Continue gabapentin - Narcan IV PRN resp depression IP - Continue cymbalta Code(s): M54.9 - DORSALGIA, UNSPECIFIED; G89.29 - OTHER CHRONIC PAIN (7) Lupus Current Visit: Yes Status: Chronic Assessment & Plan: - Continue home meds Code(s): [id number] - (8) Hyperlipidemia Current Visit: Yes Status: Chronic Assessment & Plan: - Continue statin Code(s): E78.5 - HYPERLIPIDEMIA, UNSPECIFIED (9) Depression Current Visit: Yes Status: Chronic Assessment & Plan: - Continue home meds Code(s): F32.A - DEPRESSION, UNSPECIFIED (10) Smoker Current Visit: Yes Status: Chronic Assessment & Plan: - Advised cessation, especially with her clotting disorder - 1800 quit-now information provided - Nicotine patch VTE: Coumadin, Lovenox PPI: Protonix Next of Kin: Spouse, Devon Abrams, D/C plan: When INR therapeutic or Wednesday if she can afford Lovenox injections Code status: Full Plan of care time > 35 minutes Code(s): F17.200 - NICOTINE DEPENDENCE, UNSPECIFIED, UNCOMPLICATED Code(s): F17.200 - NICOTINE DEPENDENCE, UNSPECIFIED, UNCOMPLICATED
[2025-09-09] MEDS: COUMADIN PO SCH (10:17)
[2025-09-09] MEDS: Docusate Sodium 100 MG PO PRN (15:33)
[2025-09-09] MEDS: Advair Hfa 115/21 Common canister IH SCH (19:01)
[2025-09-09] MEDS ORDERED: Docusate Sodium 100 MG PO SCH (22:00)
--- NOTE | 2025-09-09 23:33 | XRAY ---
CLINICAL HISTORY: chest pain COMPARISON: Prior CT dated 09/07/2025. TECHNIQUE: CT angiography of the chest was performed with intravenous contrast using the following protocol: Axial images were obtained, with reconstructed coronal and sagittal images. Non-contrast images were initially acquired, followed by contrast-enhanced images in arterial and venous phases. Intravenous contrast [name and volume] was administered using automated injection techniques. Bolus tracking was employed to optimize arterial phase imaging. One of these 3D techniques was utilized: Maximum Intensity Pixel (MIP), 3D Reconstructed Images, Volume Rendered Images, or Surface Shaded Rendering. One of the following dose reduction techniques was utilized for this exam: automated exposure control, adjustment of the mA and/or kV according to patient size, or use of iterative reconstruction. FINDINGS: Aorta and Great Vessels: Ascending aorta: Normal in caliber. No aneurysm, dissection, or significant atherosclerosis is present. Aortic arch: Normal in caliber. No aneurysm or dissection is identified. There is no significant change in the mild intimal calcifications, and there is no significant luminal narrowing. Descending aorta: Normal in caliber. No aneurysm, dissection, or significant atherosclerosis is seen. Pulmonary Arteries: The main pulmonary artery measures 26 mm, which is within normal limits, and its branches are patent. There is no evidence of pulmonary embolism or significant stenosis. Heart: Cardiac chambers are normal in size. There is no evidence of cardiomegaly. Pericardium: There is no pericardial effusion or thickening. Coronary arteries: There is no significant change in the mild intimal calcifications. Lungs and Pleura: The lungs are well aerated, with an increase in atelectatic bands and dependent densities, more pronounced in the lower lobes. There is no evidence of focal consolidation or interstitial changes. There is no pleural effusion. Mediastinum: There is no mediastinal mass or abnormal lymphadenopathy. Normal appearance of the trachea and central bronchi. Hilar Structures: Hilar structures are normal without enlargement. Chest Wall: No mass lesions or abnormalities in the chest wall are observed. Vascular Structures: Superior vena cava: Patent without evidence of stenosis or thrombus. Inferior vena cava: Patent without evidence of stenosis or thrombus. Bones and Soft Tissues: There is no significant change in the spondylotic changes along the thoracic spine, with multilevel disc disease, mild anterolisthesis at T5 over T6, and mild leftward upper thoracic curvature (Shah angle of 16 degrees). No fractures or suspicious lytic or sclerotic lesions are identified. The visualized soft tissues are unremarkable. Additional Findings: The thyroid gland is normal in size and morphology. No nodules or masses are identified. There is no significant change in the small hiatal hernia. There is redemonstration of the diffuse hepatic parenchymal hypodensity relative to the spleen, in keeping with diffuse fatty infiltration. Post-cholecystectomy changes are again seen with surgical clips in the gallbladder fossa. The spleen and the visualized portions of the bilateral adrenal glands and kidneys are grossly unremarkable. IMPRESSION: No evidence of pulmonary embolism. Well aerated lungs with an increase in atelectatic bands and dependent densities, more pronounced in the lower lobes. No evidence of focal consolidation. The remainder of the findings as detailed above. No other significant interval changes. Electronically Signed by: Andrew Tucker MD. (09/09/2025 23:32:48 EDT)
[2025-09-10 04:48] LABS: Hematocrit 36.5 % (34.1-44.9); Hemoglobin 11.9 g/dL (11.2-15.7); Mean Corpuscular Hemoglobin 33.3 pg (25.6-32.2); Mean Corpuscular Hgb Concent. 32.6 g/dL (32.2-35.5); Platelet Count 202 x10^3/uL (182-369); Red Blood Count 3.57 x10^6/uL (3.93-5.22); White Blood Count 6.3 x10^3/uL (3.98-10.04)
[2025-09-10 05:06] LABS: INR 1.02 (0.8-3.0); PROTIME 11.4 SECONDS (9.4-12.5)
[2025-09-10 05:07] LABS: Calcium 8.5 mg/dL (8.4-10.2); Carbon Dioxide 22 mmol/L (22-30); Creatinine 1 1.01 mg/dL (0.52-1.04); EST GLOMERULAR FILTRATION RATE 67.4 ML/MIN; Glucose 93 mg/dL (74-106); Potassium 3.9 mmol/L (3.5-5.1); SGOT/AST 31 U/L (14-36); SGPT/ALT 15 U/L (0-35); Total Protein 6.5 g/dL (6.3-8.2)
--- NOTE | 2025-09-10 05:17 | PCM.NOTE ---
Date and Time: 09/10/25510 Subjective Assessment: Ms. Abrams is a 50-year-old woman with a pmhx of morbid obesity, COPD, rheumatoid arthritis, systemic lupus erythematosus, degenerative joint disease, depression, hyperlipidemia, and a known hypercoagulable state due to anticardiolipin antibody syndrome. She has had multiple prior episodes of DVT and PE, with an IVC filter placed in 2002. She has failed DOAC therapy with both rivaroxaban and apixaban and is maintained on lifelong warfarin therapy. After relocating from [place], she experienced an interruption in Coumadin therapy for approximately three weeks due to difficulty establishing care. She resumed warfarin on September 07, 2025 under the direction of Dr. Rubalcava. That same day, she presented to the ED with right upper medial thigh pain (7/10) and increased bilateral lower extremity edema. She denied shortness of breath, chest pain, or cough. In the ED, Doppler ultrasound demonstrated bilateral nonocclusive DVTs without occlusive thrombus or evidence of extension into the iliac veins. CT pulmonary angiography was negative for PE. CBC was unremarkable; BMP revealed normal renal function and electrolytes. INR was subtherapeutic at 0.97. She received Lovenox in the ED and resumed warfarin inpatient. The patient remains hemodynamically stable, with persistent but controlled right thigh discomfort. Pain was managed with her chronic Percocet regimen. Anxiety overnight was managed nonpharmacologically with a lavender aromatherapy patch. She continues to deny chest pain, dyspnea, or new swelling. Physical exam shows persistent right upper thigh tenderness with mild edema, no erythema, and intact distal pulses. No respiratory distress is noted. She is receiving both Lovenox and warfarin bridge, with pharmacy guiding Coumadin dosing. Case management is pending insurance verification Wednesday for outpatient Lovenox coverage to ensure safe discharge with bridging therapy. Objective Data Vital Signs: Vital Signs - 24 hr Temp Pulse Resp BP BP Pulse Ox 09/10/25 04:00 11 L 09/10/25 03:00 97.2 F 63 16 95/50 89 L 09/10/25 00:00 12 09/09/25 23:38 97.3 F 76 17 104/54 97 09/09/25 22:00 104/56 09/09/25 20:04 97.9 F 65 15 110/64 99 09/09/25 20:00 16 09/09/25 19:01 60 18 97 09/09/25 18:12 64 133/74 09/09/25 16:01 98.0 F 73 16 87/50 94 L 09/09/25 16:00 16 09/09/25 14:04 64 138/66 09/09/25 12:36 86 18 96 09/09/25 12:00 18 09/09/25 11:00 97.8 F 61 16 91/50 92 L 09/09/25 08:20 14 09/09/25 07:20 96 09/09/25 07:00 98.0 F 55 L 14 125/56 96 Pain Assessment - Last Documented Pain Intensity 5 Pain Scale Used 0-10 Pain Scale Intake and Output: Intake & Output 09/07/25 09/08/25 09/09/25 09/10/25 11:59 11:59 11:59 11:59 Intake Total 680 2280 1060 Balance 680 2280 1060 Weight 115.5 kg Lab Results: Lab Results-Last 24 Hours 09/09/25 09/09/25 09/09/25 Range/Units 05:19 05:19 05:19 WBC 7.6 (3.98-10.04) x10^3/uL RBC 3.74 L (3.93-5.22) x10^6/uL Hgb 12.3 (11.2-15.7) g/dL Hct 38.5 (34.1-44.9) % MCV 102.9 H (79.4-94.8) fL MCH 32.9 H (25.6-32.2) pg MCHC 31.9 L (32.2-35.5) g/dL RDW 13.9 (11.7-14.4) % Plt Count 229 (182-369) x10^3/uL MPV 10.4 (9.4-12.3) fL PT 10.9 (9.4-12.5) SECONDS INR 0.97 (0.8-3.0) Sodium 140 (135-145) mmol/L Potassium 4.0 (3.5-5.1) mmol/L Chloride 112 H (98-107) mmol/L Carbon Dioxide 23 (22-30) mmol/L Anion Gap 9.0 (5-15) MEQ/L BUN 16 (7-17) mg/dL Creatinine 0.97 (0.52-1.04) mg/dL Estimated GFR 70.8 ML/MIN Glucose 91 (74-106) mg/dL Calcium 8.8 (8.4-10.2) mg/dL Total Bilirubin < 0.10 L (0.2-1.3) mg/dL AST 15 (14-36) U/L ALT 10 (0-35) U/L Alkaline Phosphatase 59 (38-126) U/L Serum Total Protein 6.6 (6.3-8.2) g/dL Albumin 3.5 (3.5-5.0) g/dL 09/10/25 09/10/25 09/10/25 Range/Units 04:25 04:25 04:25 WBC 6.3 (3.98-10.04) x10^3/uL RBC 3.57 L (3.93-5.22) x10^6/uL Hgb 11.9 (11.2-15.7) g/dL Hct 36.5 (34.1-44.9) % MCV 102.2 H (79.4-94.8) fL MCH 33.3 H (25.6-32.2) pg MCHC 32.6 (32.2-35.5) g/dL RDW 14.0 (11.7-14.4) % Plt Count 202 (182-369) x10^3/uL MPV 10.1 (9.4-12.3) fL PT 11.4 (9.4-12.5) SECONDS INR 1.02 (0.8-3.0) Sodium 140 (135-145) mmol/L Potassium 3.9 (3.5-5.1) mmol/L Chloride 111 H (98-107) mmol/L Carbon Dioxide 22 (22-30) mmol/L Anion Gap 11.1 (5-15) MEQ/L BUN 16 (7-17) mg/dL Creatinine 1.01 (0.52-1.04) mg/dL Estimated GFR 67.4 ML/MIN Glucose 93 (74-106) mg/dL Calcium 8.5 (8.4-10.2) mg/dL Total Bilirubin < 0.10 L (0.2-1.3) mg/dL AST 31 (14-36) U/L ALT 15 (0-35) U/L Alkaline Phosphatase 62 (38-126) U/L Serum Total Protein 6.5 (6.3-8.2) g/dL Albumin 3.4 L (3.5-5.0) g/dL Radiology Exams: Radiology Procedures Category Date Time Status CHEST WITH CONTRAST [CT] Stat Exams 09/09/25 20:15 Completed Medications: Medications Generic Name Dose Route Start Last Admin Trade Name Freq PRN Reason Stop Dose Admin Acetaminophen 650 mg 09/07/25 19:08 09/09/25 03:35 Acetaminophen 325 Mg Tablet PO 10/07/25 19:07 650 mg Q4H PRN PRN Administration PAIN, FEVER, HEADACHE Docusate Sodium 100 mg 09/09/25 15:28 09/09/25 15:33 Docusate Sodium 100 Mg Capsule PO 10/09/25 15:27 100 mg DAILY PRN PRN Administration CONSTIPATION Duloxetine HCl 90 mg 09/08/25 10:00 09/09/25 10:17 Duloxetine Hcl 30 Mg Cap PO 10/08/25 09:59 90 mg DAILY ANDERS Administration Enoxaparin Sodium 120 mg 09/07/25 22:00 09/09/25 22:10 Enoxaparin Sodium 120 Mg/0.8 Ml Syringe SQ 10/07/25 21:59 120 mg Q12HT ANDERS Administration Gabapentin 800 mg 09/07/25 22:00 09/09/25 22:09 Gabapentin 400 Mg Capsule PO 10/07/25 21:59 800 mg TID ANDERS Administration Miscellaneous Information 1 each 09/08/25 07:30 Medication Intervention 1 Each Each 10/08/25 07:29 .RN TO CHECK ANDERS Naloxone HCl 0.4 mg 09/08/25 07:28 Naloxone Hcl 0.4 Mg/Ml Ml IV 10/08/25 07:27 PRN PRN RESPIRATORY DEPRESSION Nicotine 21 mg 09/08/25 10:00 09/09/25 10:17 Nicotine 21 Mg/Patch Patch TOP 10/08/25 09:59 21 mg Q24H10 ANDERS Administration Ondansetron HCl 4 mg 09/07/25 19:46 Ondansetron Hcl 4 Mg/2 Ml Vial IV 10/07/25 19:45 Q6H PRN PRN NAUSEA/VOMITING Oxycodone/Acetaminophen 1 tab 09/07/25 22:00 09/09/25 22:09 Oxycodone / Apap 10/325 Mg 1 Tablet PO 09/12/25 21:59 1 tab QID ANDERS Administration Pantoprazole Sodium 40 mg 09/08/25 10:00 09/09/25 10:17 Protonix (Pantoprazole) 40 Mg Tablet PO 10/08/25 09:59 40 mg DAILY ANDERS Administration Ropinirole HCl 1 mg 09/08/25 22:00 09/09/25 22:09 Ropinirole Hcl 0.5 Mg Tablet PO 10/08/25 21:59 1 mg HS ANDERS Administration Fluticasone/Salmeterol 2 puff 09/09/25 19:00 09/09/25 19:01 Fluticasone/Salmeterol 115/21 60 Puff Aer.W.Adap 10/09/25 18:59 2 puff BIDRT ANDERS Administration Simvastatin 20 mg 09/08/25 10:00 09/09/25 10:17 Simvastatin 20 Mg Tablet PO 10/08/25 09:59 20 mg DAILY ANDERS Administration Tiotropium [place] 1 ea 09/10/25 10:00 Tiotropium [place] 18 Mcg/Cap Inhaler 10/10/25 09:59 DAILY ANDERS Trazodone HCl 150 mg 09/08/25 22:00 09/09/25 22:10 Trazodone Hcl 50 Mg Tablet PO 10/08/25 21:59 150 mg HS ANDERS Administration Warfarin Sodium 10 mg 09/09/25 10:00 09/09/25 10:17 Warfarin Sodium 5 Mg Tablet PO 10/09/25 09:59 10 mg DAILY ANDERS Administration Discontinued Medications Generic Name Dose Route Start Last Admin Trade Name Freq PRN Reason Stop Dose Admin Hydrocodone Bitart/Acetaminophen 1 tab 09/07/25 19:48 09/08/25 04:20 Hydrocodone/Apap 5/325 1 Tab Tablet PO 09/12/25 19:47 1 tab Q4H PRN PRN Administration PAIN Docusate Sodium 100 mg 09/09/25 22:00 Docusate Sodium 100 Mg Capsule PO 10/09/25 21:59 HS ANDERS Enoxaparin Sodium 120 mg 09/07/25 16:13 09/07/25 16:21 Enoxaparin Sodium 120 Mg/0.8 Ml Syringe SQ 09/07/25 16:14 120 mg STAT STA Administration Enoxaparin Sodium Confirm 09/07/25 16:19 Enoxaparin Sodium 120 Mg/0.8 Ml Syringe Administered 09/07/25 16:20 Dose 120 mg SQ .STK-MED ONE Hydromorphone HCl 1 mg 09/07/25 16:19 09/07/25 16:34 Hydromorphone 1 Mg/1ml Inj IV 09/07/25 16:20 1 mg STAT ONE Administration Hydromorphone HCl Confirm 09/07/25 16:31 Hydromorphone 1 Mg/1ml Inj Administered 09/07/25 16:32 Dose 1 mg .ROUTE .STK-MED ONE Hydromorphone HCl 1 mg 09/07/25 18:49 09/07/25 18:55 Hydromorphone 1 Mg/1ml Inj IV 09/07/25 18:50 1 mg STAT ONE Administration Hydromorphone HCl Confirm 09/07/25 18:54 Hydromorphone 1 Mg/1ml Inj Administered 09/07/25 18:55 Dose 1 mg .ROUTE .STK-MED ONE Hydromorphone HCl 1 mg 09/07/25 19:48 Hydromorphone 1 Mg/1ml Inj IV 09/12/25 19:47 Q4H PRN PRN PAIN Sodium Chloride 1,000 mls @ 100 mls/hr 09/07/25 16:30 09/07/25 16:33 Sodium Chloride 0.9% 1000 Ml IV 10/07/25 16:29 100 mls/hr .Q10H ANDERS Administration Sodium Chloride Confirm 09/07/25 16:32 Sodium Chloride 0.9% 1000 Ml Administered 09/07/25 16:33 Dose 1,000 mls @ ud .ROUTE .STK-MED ONE Non-Formulary Medication 150 mg 09/07/25 22:00 09/07/25 21:27 Trazodone Hcl [Trazodone Hcl] PO 10/07/25 21:59 150 mg HS ANDERS Administration Non-Formulary Medication 1 each 09/08/25 07:27 09/08/25 08:43 Pharmacy Dosing Request MC 09/08/25 07:28 1 each STAT ONE Administration Ondansetron HCl 4 mg 09/07/25 16:19 09/07/25 16:34 Ondansetron Hcl 4 Mg/2 Ml Vial IV 09/07/25 16:20 4 mg STAT ONE Administration Ondansetron HCl Confirm 09/07/25 16:31 Ondansetron Hcl 4 Mg/2 Ml Vial Administered 09/07/25 16:32 Dose 4 mg .ROUTE .STK-MED ONE Sumatriptan Succinate 6 mg 09/08/25 18:54 09/08/25 19:42 Sumatriptan Succinate 6 Mg/0.5 Ml Vial SQ 09/08/25 18:55 6 mg STAT STA Administration Trazodone HCl Confirm 09/07/25 21:21 Trazodone Hcl 50 Mg Tablet Administered 09/07/25 21:22 Dose 150 mg .ROUTE .STK-MED ONE Warfarin Sodium 5 mg 09/08/25 10:00 09/08/25 10:19 Warfarin Sodium 5 Mg Tablet PO 10/08/25 09:59 5 mg DAILY ANDERS Administration Warfarin Sodium 2 mg 09/08/25 10:00 09/08/25 10:20 Warfarin Sodium 2 Mg Tablet PO 10/08/25 09:59 2 mg DAILY ANDERS Administration Multi-Disciplinary Progress Notes: Multi-Disciplinary Progress Notes 09/09/25 08:45 Pharmacy Note by Christian Connor INR 0.97, Coumadin increased to 10mg daily. Initialized on 09/09/25 08:45 - END OF NOTE Assessment/Plan (1) DVT of lower extremity, bilateral Current Visit: Yes Status: Acute Assessment & Plan: -Likely secondary to interruption of warfarin therapy in setting of known antiphospholipid syndrome. -INR reviewed at 1.02 -Continue Lovenox 1 mg/kg BID/coumadin bridging until INR therapeutic with pharmacy dosing -Monitor INR daily. -Encourage leg elevation and ambulation as tolerated. -Monitor for signs/symptoms of PE (dyspnea, tachycardia, hypoxia). -Case management to determine outpatient affordability of Lovenox; if approved and patient remains stable, discharge with Lovenox bridge until INR ?2.0 for two consecutive days. -CMP/CBC reviewed and unremarkable Code(s): I82.403 - ACUTE EMBOLISM AND THOMBOS UNSP DEEP VEINS OF LOW EXTRM, BI (2) Anticardiolipin antibody syndrome Current Visit: Yes Status: Acute Assessment & Plan: -Chronic hypercoagulable state requiring lifelong anticoagulation. -IVC filter remains in place (2002). -Continue warfarin indefinitely with INR goal 2.53.5 due to recurrent thrombosis. -Outpatient follow-up with [facility] after discharge. Code(s): D68.61 - ANTIPHOSPHOLIPID SYNDROME (3) Leg pain Current Visit: Yes Status: Acute Assessment & Plan: -Continue Percocet 10 mg QID (home regimen). -Tylenol PRN for breakthrough pain. -Avoid NSAIDs due to anticoagulation and risk of bleeding. (4) Subtherapeutic anticoagulation Current Visit: Yes Status: Acute Assessment & Plan: -INR reviewed at (goal 2.53.5). -Continue daily INR monitoring and Coumadin adjustment. -Bridge therapy with therapeutic Lovenox until INR therapeutic. -Reinforce warfarin dietary consistency and avoidance of vitamin K fluctuations. Code(s): Z51.81 - ENCOUNTER FOR THERAPEUTIC DRUG LEVEL MONITORING; Z79.01 - 3D SPECIALIST (CURRENT) USE OF ANTICOAGULANTS (5) Obesity, morbid, BMI 40.0-49.9 Current Visit: Yes Status: Acute Assessment & Plan: -Encouraged frequent ambulation and leg exercises to reduce venous stasis. -Nutrition education reinforced regarding warfarin-compatible diet. Code(s): E66.01 - MORBID (SEVERE) OBESITY DUE TO EXCESS CALORIES (6) Depression Current Visit: Yes Status: Chronic Assessment & Plan: -Continue home antidepressant regimen (Cymbalta). -Stable mood; no suicidal ideation. Code(s): F32.A - DEPRESSION, UNSPECIFIED (7) Hyperlipidemia Current Visit: Yes Status: Chronic Assessment & Plan: -Continue statin therapy. Code(s): E78.5 - HYPERLIPIDEMIA, UNSPECIFIED (8) Lupus Current Visit: Yes Status: Chronic Assessment & Plan: -Stable on current regimen; no evidence of flare. -Continue home meds. Code(s): [id number] - (9) Rheumatoid arthritis Current Visit: Yes Status: Chronic Assessment & Plan: -Continue home regimen including gabapentin and Cymbalta. -Maintain pain control, but will require Narcan nasal spray prescription on discharge due to high-dose opioid use. -Outpatient Pain Management follow-up already arranged. Code(s): M06.9 - RHEUMATOID ARTHRITIS, UNSPECIFIED (10) Smoker Current Visit: Yes Status: Chronic Assessment & Plan: -Counseled extensively on cessation given hypercoagulable disorder. -Nicotine patch initiated inpatient. -[id number] information provided. VTE: Coumadin, Lovenox PPI: Protonix Next of Kin: Spouse, Devon Abrams, D/C plan: When INR therapeutic or Wednesday if she can afford Lovenox injections Code status: Full Plan of care time > 35 minutes Code(s): F17.200 - NICOTINE DEPENDENCE, UNSPECIFIED, UNCOMPLICATED
[2025-09-10] MEDS: Spiriva 18 Mcg/Cap Inhaler IH SCH (07:20)
[2025-09-10 12:28] VITALS: BP 101/55; PULSE 57; RESP 18; TEMP 97.9; O2SAT 96
--- NOTE | 2025-09-10 13:19 | PCM.DS ---
Discharge Summary Date of Admission: 09/07/25 19:01 Date of Discharge: 09/10/25 Admitting Physician: DARRIN NATHAN MD Primary Care Provider: DUNIA HAHN Allergies Allergies Penicillins Allergy (Severe, Verified 09/07/25 15:19) Anaphylactic Reaction Sulfa (Sulfonamide Antibiotics) Allergy (Severe, Verified 09/07/25 15:19) Anaphylactic Reaction azithromycin Allergy (Verified 09/07/25 15:19) [facility] cefaclor [From Ceclor] Allergy (Verified 09/07/25 15:19) [facility] - Hospital Course Hospital Course: Ms. Abrams, a 50-year-old woman with a history of morbid obesity, COPD, rheumatoid arthritis, systemic lupus erythematosus, degenerative joint disease, depression, hyperlipidemia, and antiphospholipid antibody syndrome, was admitted with right medial thigh pain and progressive bilateral leg edema after a three- week interruption in warfarin therapy following relocation. She has a history of multiple DVTs and PEs, an IVC filter placed in 2002, and prior failure of DOAC therapy (rivaroxaban and apixaban). On presentation, she was hemodynamically stable without respiratory distress or chest pain. Bilateral lower extremity Doppler ultrasound demonstrated nonocclusive DVTs without iliac extension, while CT pulmonary angiography showed no pulmonary embolism. Repeat CT chest 09/09/25 also with no PE or acute findings. INR was 1.02, confirming subtherapeutic anticoagulation. CBC and CMP were unremarkable, with preserved renal and hepatic function. Given her high- risk hypercoagulable state, she was started on therapeutic enoxaparin bridging while resuming warfarin, with pharmacy-directed dosing and daily INR monitoring. During hospitalization, her right thigh pain improved with continuation of her chronic Percocet regimen, and her anxiety was managed nonpharmacologically. She remained afebrile and with no new thromboembolic symptoms. Discharge planning included confirmation of outpatient Lovenox coverage and follow-up with the Coumadin Clinic for INR management and bridging oversight. Patient also qualified for home oxygen at 2L continuous. Discharge Note New Diagnosis: DVT New Medications: coumadin/lovenox bridge with pharmacy to manage Follow Up: PCP Outpatient testing to order: INR per coumadin clinic schedule I spent 35 minutes [id number] with the patient on the day of discharge performing discharge exam, discussing hospital stay and discharge instructions with patient and caregivers, preparation of discharge records, prescriptions & referral forms and addressing any questions/concerns the patient had as documented above. - Vitals & Intake/Output Vital Signs: Vital Signs Temperature 97.9 F 09/10/25 11:00 Pulse Rate 57 L 09/10/25 11:00 Respiratory Rate 18 09/10/25 11:00 Blood Pressure 101/55 09/10/25 11:00 O2 Sat by Pulse Oximetry 96 09/10/25 11:00 Intake & Output: Intake & Output 09/08/25 09/09/25 09/10/25 09/11/25 11:59 11:59 11:59 11:59 Intake Total 680 2280 1300 Balance 680 2280 1300 Weight 115.5 kg 115 kg - Lab Result Diagrams: 09/10/25 04:25 09/10/25 04:25 Lab Results-Last 24 Hrs: Lab Results-Last 24 Hours 09/10/25 09/10/25 09/10/25 Range/Units 04:25 04:25 04:25 WBC 6.3 (3.98-10.04) x10^3/uL RBC 3.57 L (3.93-5.22) x10^6/uL Hgb 11.9 (11.2-15.7) g/dL Hct 36.5 (34.1-44.9) % MCV 102.2 H (79.4-94.8) fL MCH 33.3 H (25.6-32.2) pg MCHC 32.6 (32.2-35.5) g/dL RDW 14.0 (11.7-14.4) % Plt Count 202 (182-369) x10^3/uL MPV 10.1 (9.4-12.3) fL PT 11.4 (9.4-12.5) SECONDS INR 1.02 (0.8-3.0) Sodium 140 (135-145) mmol/L Potassium 3.9 (3.5-5.1) mmol/L Chloride 111 H (98-107) mmol/L Carbon Dioxide 22 (22-30) mmol/L Anion Gap 11.1 (5-15) MEQ/L BUN 16 (7-17) mg/dL Creatinine 1.01 (0.52-1.04) mg/dL Estimated GFR 67.4 ML/MIN Glucose 93 (74-106) mg/dL Calcium 8.5 (8.4-10.2) mg/dL Total Bilirubin < 0.10 L (0.2-1.3) mg/dL AST 31 (14-36) U/L ALT 15 (0-35) U/L Alkaline Phosphatase 62 (38-126) U/L Serum Total Protein 6.5 (6.3-8.2) g/dL Albumin 3.4 L (3.5-5.0) g/dL - Radiology Exams Ordered Rad Exams-Entire Visit: Radiology Procedures Category Date Time Status CHEST WITH CONTRAST [CT] Stat Exams 09/09/25 20:15 Completed - Procedures and Test Procedures and Tests throughout Hospitalization: Therapy Orders & Screens 09/08/25 15:52 Oxygen Nasal Cannula 2 lpm Comment: Diagnosis: Bilateral lower extremity DVT 09/09/25 12:36 Respiratory Therapy Assessment DAILY Comment: Diagnosis: Bilateral lower extremity DVT 09/09/25 12:45 Respiratory MDI BID Comment: Diagnosis: Bilateral lower extremity DVT 09/09/25 19:13 EKG STAT Comment: Diagnosis: Bilateral lower extremity DVT 09/10/25 09:44 Incentive Spirometry UD Comment: Diagnosis: Bilateral lower extremity DVT Discharge Exam General Appearance: no apparent distress Neurologic Exam: alert, oriented x 3, cooperative Eye Exam: PERRL Ears, Nose, Throat Exam: normal ENT inspection Neck Exam: normal inspection Respiratory Exam: normal breath sounds, lungs clear Cardiovascular Exam: regular rate/rhythm, normal heart sounds Gastrointestinal/Abdomen Exam: soft, normal bowel sounds Pelvic Exam: deferred Rectal Exam: deferred Back Exam: normal inspection Extremity Exam: normal inspection Skin Exam: normal color Final Diagnosis/Problem List - Final Discharge Diagnosis/Problem (1) DVT of lower extremity, bilateral Current Visit: Yes Status: Acute Assessment & Plan: Continue Lovenox 120mg subcutaneously BID and warfarin dosed by pharmacy (pt has rx at home) until INR in therapeutic rang 2-3 for two consecutive days -managed by coumadin clinic Daily INR monitoring inpatient; outpatient Coumadin Clinic to assume management post-discharge. Encourage leg elevation, ambulation as tolerated, and vigilance for signs of PE (dyspnea, tachycardia, chest pain, hypoxia). Pain managed with home regimen; avoid NSAIDs due to bleeding risk Code(s): I82.403 - ACUTE EMBOLISM AND THOMBOS UNSP DEEP VEINS OF LOW EXTRM, BI (2) Anticardiolipin antibody syndrome Current Visit: Yes Status: Acute Assessment & Plan: Continue lifelong anticoagulation with warfarin. Code(s): D68.61 - ANTIPHOSPHOLIPID SYNDROME (3) Leg pain Current Visit: Yes Status: Acute Assessment & Plan: Continue Percocet 10 mg QID (home regimen) with acetaminophen PRN for breakthrough. Narcan nasal spray prescribed for safety due to high-dose opioid use. Outpatient pain management follow-up confirmed. (4) Subtherapeutic anticoagulation Current Visit: Yes Status: Acute Assessment & Plan: INR on discharge trending upward but below goal. Continue warfarin with Lovenox bridge; reinforce dietary vitamin K consistency and medication adherence. OP follow up with coumadin clinic -schedule as directed by pharmacy Code(s): Z51.81 - ENCOUNTER FOR THERAPEUTIC DRUG LEVEL MONITORING; Z79.01 - PENITENTIARY (CURRENT) USE OF ANTICOAGULANTS (5) Obesity, morbid, BMI 40.0-49.9 Current Visit: Yes Status: Acute Assessment & Plan: Encourage gradual weight reduction, ambulation, and leg exercises to prevent stasis. Reinforce warfarin-compatible nutrition education. Code(s): E66.01 - MORBID (SEVERE) OBESITY DUE TO EXCESS CALORIES (6) Depression Current Visit: Yes Status: Chronic Assessment & Plan: Continue Cymbalta; mood stable during admission with no suicidal ideation. Code(s): F32.A - DEPRESSION, UNSPECIFIED (7) Hyperlipidemia Current Visit: Yes Status: Chronic Assessment & Plan: Continue home statin therapy. Code(s): E78.5 - HYPERLIPIDEMIA, UNSPECIFIED (8) Lupus Current Visit: Yes Status: Chronic Assessment & Plan: Stable; no evidence of flare. Continue home regimen. Code(s): [id number] - (9) Rheumatoid arthritis Current Visit: Yes Status: Chronic Assessment & Plan: Continue Cymbalta and gabapentin; avoid NSAIDs due to anticoagulation. Follow-up with outpatient rheumatology and pain management. Code(s): M06.9 - RHEUMATOID ARTHRITIS, UNSPECIFIED (10) Smoker Current Visit: Yes Status: Chronic Assessment & Plan: Counseled extensively on cessation due to thrombosis risk. Continue nicotine patch initiated inpatient. Provided [id number]-NOW resources. Disposition: Discharged home in stable condition with outpatient Lovenox bridge and Coumadin Clinic management. Follow-up: Coumadin Clinic for INR monitoring and Lovenox discontinuation once therapeutic. Primary care, rheumatology, and pain management within 12 weeks. Condition at Discharge: Stable, ambulatory, no acute distress. Code(s): F17.200 - NICOTINE DEPENDENCE, UNSPECIFIED, UNCOMPLICATED (11) COPD (chronic obstructive pulmonary disease) Current Visit: Yes Status: Acute Assessment & Plan: Resting and ambulatory oximetry confirmed qualification for home oxygen. Encourage smoking cessation and adherence to inhaler regimen Discharge on 2 L/min nasal cannula, titrated to maintain SpO2 > 92%. Follow up with pulmonology - Discharge Discharge Date: 09/10/25 Disposition: Home, Self-Care Condition: Stable Prescriptions: New Warfarin Sodium 5 mg [Coumadin] 10 mg PO DAILY tablet Enoxaparin Sodium [Enoxaparin Sodium] 120 mg SQ Q12HT 3 Days #6 units Naloxone HCl [Narcan] See Rx Instructions .ROUTE .COMPLEX 30 Days #1 kit Naloxone HCl [Narcan] See Rx Instructions .ROUTE .COMPLEX 30 Days #1 kit Continue Trazodone HCl 150 mg PO HS Gabapentin [Neurontin ] 800 mg PO TID Oxycodone / APAP 10/325 mg [Oxycodone-Acetaminophen 10-325] 1 tab PO QID Rosuvastatin Calcium 10 mg PO DAILY Esomeprazole Magnesium [Nexium] 40 mg PO DAILY Duloxetine HCl 90 mg PO DAILY Ropinirole HCl 1 mg PO HS Hydroxychloroquine Sulfate 400 tab PO DAILY Rizatriptan Benzoate [Rizatriptan] 10 mg PO DAILY Discontinued Warfarin Sodium 5 mg [Coumadin] 7 mg PO DAILY Instructions: Oxygen therapy at home Additional Instructions: WEAR 2L/NC AT ALL TIMES CALL DEONNA AT [phone] WHEN YOU LEAVE [facility] SO THEY CAN MEET YOU AT HOME TO DELIVER YOUR HOME CONCENTRATOR Follow up with: DUNIA HAHN [Primary Care Provider, [facility]]
[2025-09-10] MEDS: ENOXAPARIN SODIUM SQ ONE (18:00)
== END 2025-09-10 18:20 | disposition home or self-care (01) ==
LOC: ED 15:04 → MED SURG 19:01
PROVIDERS: ADMIT Internal Medicine; ATTEND Internal Medicine
DX: I82.403 Acute embolism and thrombosis of unspecified deep veins of lower extremity, bilateral (principal); D68.61 Antiphospholipid syndrome; M79.605 Pain in left leg; M79.604 Pain in right leg; Z51.81 Encounter for therapeutic drug level monitoring; Z79.01 Long term (current) use of anticoagulants; Z79.899 Other long term (current) drug therapy; E66.01 Morbid (severe) obesity due to excess calories; F32.A Depression, unspecified; E78.5 Hyperlipidemia, unspecified; D68.62 Lupus anticoagulant syndrome; M06.9 Rheumatoid arthritis, unspecified; F17.200 Nicotine dependence, unspecified, uncomplicated; J44.9 Chronic obstructive pulmonary disease, unspecified; R60.0 Localized edema